=== PATIENT | female | born 1965 | race Caucasian/White ===

== ENCOUNTER → 2017-09-12 | Outpatient (CLI) | payer MEDICAID ==
--- NOTE | 2017-09-12 17:38 | XR ---
EXAMINATION TYPE: XR calcaneus 2V LT DATE OF EXAM: 09/12/2017 COMPARISON: NONE HISTORY: Heel pain TECHNIQUE: 2 views FINDINGS: There is a large Achilles calcaneal spur. Subtalar joint appears normal. I see no fracture. IMPRESSION: Large calcaneal spur.
== END | disposition home or self-care (01) ==
LOC: RADXRMAIN 17:19
PROVIDERS: ATTEND Family Medicine
DX: M77.32 Calcaneal spur, left foot (principal)

== ENCOUNTER → 2017-10-04 | Outpatient (CLI) | payer MEDICAID ==
--- NOTE | 2017-10-05 10:32 | XR ---
EXAMINATION TYPE: XR foot complete LT, XR calcaneus 2V LT DATE OF EXAM: 10/04/2017 CLINICAL HISTORY: Left foot pain greatest in the patient's heel. TECHNIQUE: Frontal, lateral, and oblique images of the left foot are obtained as well as calcaneal we ightbearing view. 2 views of the calcaneus were also obtained. COMPARISON: 09/12/2017 FINDINGS: There is no acute fracture/dislocation evident in the left foot. The joint spaces in the left foot appear within normal limits. The overlying soft tissue appears unremarkable. No focal soft tissue swelling. Osseous mineralization is within normal limits. No significant degenerative change. Boehler's angle is within normal limits. IMPRESSION: 1. There is no acute fracture or dislocation in the left foot. 2. Redemonstration of a large Achilles enthesophyte/supracalcaneal heel spur.
== END | disposition home or self-care (01) ==
LOC: RADXRMAIN 15:53
PROVIDERS: ATTEND Podiatrist Foot & Ankle Surgery
DX: M77.32 Calcaneal spur, left foot (principal); M79.672 Pain in left foot

== ENCOUNTER → 2017-10-11 | Outpatient (CLI) | payer MEDICAID ==
--- NOTE | 2017-10-16 08:45 | MM ---
Reason for exam: screening (asymptomatic). Last mammogram was performed 2 years and 5 months ago. History: Benign MG stereo VAD BX LT of the left breast, June 02, 2015. Benign excisional biopsy of the right breast, December 2010. Benign right US cyst aspiration of the right breast, August 16, 2010. Benign left mammotome panel of the left breast, December 12, 2005. Benign left US cyst aspiration of the left breast, December 12, 2005. Physical Findings: A clinical breast exam by your physician is recommended on an annual basis and results should be correlated with mammographic findings. MG Screening Mammo w CAD Bilateral CC and MLO view(s) were taken. Prior study comparison: May 08, 2015, bilateral MG diagnostic mammo w CAD [facility]. April 29, 2014, bilateral MG screening mammo w CAD. April 29, 2014, mammogram. The breast tissue is heterogeneously dense. This may lower the sensitivity of mammography. Previous mammotome biopsy within the left breast x 2. Bilateral breast masses have fluctuated in size, largest now on the right seems to measure up to 3cm, ultrasound is recommended. Regional calcifications are unchanged. ASSESSMENT: Incomplete: need additional imaging evaluation, BI-RAD 0 RECOMMENDATION: Ultrasound of both breasts. [facility] will attempt to contact patient to return for ultrasound.
== END | disposition home or self-care (01) ==
LOC: RADMAMWWP 16:41
PROVIDERS: ATTEND Family Medicine
DX: Z12.31 Encounter for screening mammogram for malignant neoplasm of breast (principal); Z00.00 Encounter for general adult medical examination without abnormal findings

== ENCOUNTER → 2018-04-28 | Outpatient (CLI) | payer MEDICAID ==
[2018-04-28 10:16] LABS: Basophils # (A) 0.1 k/uL (0-0.2); Basophils % (A) 1 %; Eosinophils # (A) 0.2 k/uL (0-0.7); Eosinophils % (A) 3 %; HCT 40.6 % (34.0-46.0); HGB 13.5 gm/dL (11.4-16.0); Lymphocytes # (A) 1.9 k/uL (1.0-4.8); Lymphocytes % (A) 32 %; MCH 29.6 pg (25.0-35.0); MCHC 33.1 g/dL (31.0-37.0); MCV 89.3 fL (80.0-100.0); Mean Platelet Volume 7.6; Monocytes # (A) 0.3 k/uL (0-1.0); Monocytes % (A) 6 %; Neutrophils # (A) 3.4 k/uL (1.3-7.7); Neutrophils % (A) 57 %; Platelet Count 320 k/uL (150-450); RBC 4.55 m/uL (3.80-5.40); RDW 13.8 % (11.5-15.5); WBC 6.1 k/uL (3.8-10.6)
[2018-04-28 10:38] LABS: ALT 32 U/L (9-52); AST 31 U/L (14-36); Albumin 4.5 g/dL (3.5-5.0); Alkaline Phosphatase 65 U/L (38-126); Anion Gap 12 mmol/L; Blood Urea Nitrogen 10 mg/dL (7-17); Calcium 9.4 mg/dL (8.4-10.2); Carbon Dioxide 27 mmol/L (22-30); Chloride 102 mmol/L (98-107); Cholesterol 272 mg/dL (<200); Glucose 75 mg/dL (74-99); HDL Cholesterol 50 mg/dL (40-60); LDL Cholesterol,Calculated 171 mg/dL (0-99); Potassium 4.5 mmol/L (3.5-5.1); Sodium 141 mmol/L (137-145); Total Bilirubin 0.9 mg/dL (0.2-1.3); Total Protein 7.6 g/dL (6.3-8.2); Triglycerides 253 mg/dL (<150)
== END | disposition home or self-care (01) ==
LOC: LABWHC1 09:10
PROVIDERS: ATTEND Family Medicine
DX: E66.9 Obesity, unspecified (principal)
CPT/HCPCS: 36415; 80053; 80061; 82306; 84443; 85025

== ENCOUNTER → 2018-05-08 | Outpatient (CLI) | payer MEDICAID ==
--- NOTE | 2018-05-08 11:33 | USB ---
Reason for exam: follow-up at short interval from prior study. History: Benign MG stereo VAD BX LT of the left breast, June 02, 2015. Benign excisional biopsy of the right breast, December 2010. Benign right US cyst aspiration of the right breast, August 16, 2010. Benign left mammotome panel of the left breast, December 12, 2005. Benign left US cyst aspiration of the left breast, December 12, 2005. Physical Findings: Nurse Summary: Patient complains of left pain around nipple around menstrual cycle, bilateral nodularity (nurse mj). US Breast BILAT Right complete breast ultrasound includes all four quadrants, the retroareolar region and axilla. Finding demonstrates a 0.9 x 0.7 x 0.9cm oval, hypoechoic lesion at 12 o'clock, a 0.9 x 0.5 x 0.9cm oval, cystic lesion at 10 o'clock and a 0.8 x 0.5 x 0.5cm oval, mixed lesion at 11 o'clock. Left complete breast ultrasound includes all four quadrants, the retroareolar region and axilla. Finding demonstrates several oval, cystic lesions measuring 1.9 x 0.8 x 2.4cm at 12 o'clock, 1.9 x 0.9 x 1.9cm at 12 o'clock, 1.9 x 1.2 x 1.4cm at 10 o'clock and a 1.8 x 0.9 x 2.1cm at 11 o'clock. Overall fibrocystic change redemonstrated. These results were verbally communicated with the patient and result sheet given to the patient on 05/08/18. ASSESSMENT: Benign, BI-RAD 2 RECOMMENDATION: Return to routine screening mammogram schedule for both breasts. Back on schedule.
== END | disposition home or self-care (01) ==
LOC: RADUSWWP 10:06
PROVIDERS: ATTEND Family Medicine
DX: R92.8 Other abnormal and inconclusive findings on diagnostic imaging of breast (principal)

== ENCOUNTER → 2019-04-27 | Outpatient (CLI) | payer MEDICAID ==
[2019-04-27 16:46] LABS: Albumin 4.2 g/dL (3.80-4.90); Albumin/Globulin Ratio 1.91 (1.60-3.17); Anion Gap 9.5 mmol/L (4.00-12.00); Calcium 9.2 mg/dL (8.7-10.3); Carbon Dioxide 26.5 mmol/L (21.6-31.8); Globulin 2.2 g/dL (1.6-3.3); LDL Cholesterol,Calculated 105.4 mg/dL (0.0-131.0); Potassium 4.4 mmol/L (3.5-5.5); Total Bilirubin 0.7 mg/dL (0.2-1.2); Total Protein 6.4 g/dL (6.2-8.2); VLDL Calculation 33.6 mg/dL (5.00-40.00)
== END ==
LOC: LABWHC1 09:00
PROVIDERS: ATTEND Family Medicine
DX: E78.5 Hyperlipidemia, unspecified (principal)
CPT/HCPCS: 36415; 80053; 80061

== ENCOUNTER → 2019-05-30 | Outpatient (CLI) | payer MEDICAID ==
--- NOTE | 2019-05-31 09:58 | MM ---
Reason for exam: screening (asymptomatic). Last mammogram was performed 1 year and 8 months ago. History: Benign MG stereo VAD BX LT of the left breast, June 02, 2015. Benign excisional biopsy of the right breast, December 2010. Benign right US cyst aspiration of the right breast, August 16, 2010. Benign left mammotome panel of the left breast, December 12, 2005. Benign left US cyst aspiration of the left breast, December 12, 2005. Physical Findings: A clinical breast exam by your physician is recommended on an annual basis and results should be correlated with mammographic findings. MG Screening Mammo w CAD Bilateral CC and MLO view(s) were taken. Prior study comparison: October 11, 2017, bilateral MG screening mammo w CAD. May 08, 2015, bilateral MG diagnostic mammo w CAD [facility]. The breast tissue is heterogeneously dense. This may lower the sensitivity of mammography. Previous mammotome biopsy in the left breast x 2. There is chronic nodularity in the right breast has decreased in size and in the left breast at clip. There is no new dominant lesion. ASSESSMENT: Benign, BI-RAD 2 RECOMMENDATION: Routine screening mammogram of both breasts in 1 year.
== END | disposition home or self-care (01) ==
LOC: RADMAMWWP 08:28
PROVIDERS: ATTEND Family Medicine
DX: Z12.31 Encounter for screening mammogram for malignant neoplasm of breast (principal)
CPT/HCPCS: 77067

== ENCOUNTER → 2019-06-25 | Outpatient (CLI) | payer MEDICAID ==
--- NOTE | 2019-06-25 16:18 | CONS ---
CONSULTATION REASON FOR CONSULTATION: Sleep apnea. 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 During a routine DOT physical, the patient screened positive for sleep apnea, as the patient's BMI was high at 50.2 and she has a history of snoring. For that reason, she was referred to me. She goes to bed around 9 p.m., wakes up around 5 a.m. in the morning. She gets fatigued, yet she does not have any significant sleepiness. She has a history of snoring. No witnessed apneas. No choking or gasping sensation. No grinding of the teeth. No restlessness at night or sleep fragmentation. She does not drink alcohol. Falkner score is at 2. No sleep paralysis, hallucinations or cataplexy. PAST MEDICAL HISTORY: 1. Hyperlipidemia. 2. Obesity. PAST SURGICAL HISTORY: Past surgical history includes: 1. . 2. Tubal ligation. 3. Umbilical hernia repair. DRUG ALLERGIES: NOT KNOWN. OUTPATIENT MEDICATION LIST: Outpatient medication list includes: 1. Lipitor. 2. Vitamin D. 3. Tumeric. SOCIAL HISTORY: The patient is a nonsmoker for now. The patient quit smoking around 4 years ago; she had smoked since the age of 15, around one pack of cigarettes a day. No history of alcoholism. No history of IV drugs. FAMILY HISTORY: Mother had colon cancer. Father had heart disease. Migraine in her sister. REVIEW OF SYSTEMS: Fourteen-point review of systems was done. Since the patient quit smoking, she gained a significant amount of weight, on the order of 25 pounds. She tries to sleep on her side. She watches TV in her bedroom. No coffee drinking. No vivid dreams. No nightmares. No panic, anxiety. No history of any motor vehicle accident because of feeling drowsy or sleepy. No heartburn. No palpitations. No sleepwalking or sleeptalking. No grinding of the teeth. No insomnia. No chest pain. No shortness of breath, cough, sputum production or heartburn. PHYSICAL EXAMINATION: VITAL SIGNS: BP is 150/83, pulse 70, respirations 16, temperature 98.3, saturation 98% on room air. Weight is 275. Height is 5 feet 2 inches. Neck size is 16 inches. Falkner score is 2. GENERAL APPEARANCE: Calm, comfortable. HEAD: Atraumatic, normocephalic. NECK: Supple. No JVD. No goiter or neck masses. Mallampati class IV. LUNGS: Clear to auscultation. HEART: Heart sounds are regular rate and rhythm. Normal S1, S2. No S3, S4. No murmurs. ABDOMEN: Soft, nontender. No organomegaly. EXTREMITIES: No edema. No cyanosis or clubbing. NEUROLOGIC: The patient is alert and oriented x3. No focal neurological deficits. PSYCHIATRY: Negative for anxiety or depression. SKIN: Negative for any wounds or ulceration. IMPRESSION: 1. Chronic fatigue with limited sleepiness. Consider obstructive sleep apnea based on anatomic features. 2. History of snoring. 3. Obesity with a body mass index of 50.2. 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 5. Hyperlipidemia. PLAN: Clinically the patient does not have any significant hypersomnia. 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 Based on anatomic features, I think it is crucial to do a sleep study to rule out underlying obstructive sleep apnea. Cannot rule out sleep apnea on clinical grounds, and a PSG will be needed. Encourage weight loss. Her BMI is 50.2. She is averaging a good 7-8 hours of sleep. She has good sleep hygiene measures. Will continue to follow. MMJESUSL / ELIERN: [id number] /
== END | disposition home or self-care (01) ==
LOC: SLEEP 13:20
PROVIDERS: ATTEND Internal Medicine Critical Care Medicine
DX: R06.83 Snoring (principal); E78.5 Hyperlipidemia, unspecified; R53.82 Chronic fatigue, unspecified; E66.9 Obesity, unspecified; Z68.43 Body mass index [BMI] 50.0-59.9, adult; Z79.899 Other long term (current) drug therapy; Z87.891 Personal history of nicotine dependence
CPT/HCPCS: 99211

== ENCOUNTER → 2019-08-21 | Outpatient (CLI) | payer MEDICAID ==
[2019-08-21 11:51] LABS: Basophils % (A) 1 %; Eosinophils # (A) 0.1 k/uL (0-0.7); Eosinophils % (A) 2 %; HCT 36.2 % (34.0-46.0); HGB 12.2 gm/dL (11.4-16.0); Lymphocytes # (A) 1.9 k/uL (1.0-4.8); Lymphocytes % (A) 32 %; MCH 29.3 pg (25.0-35.0); MCHC 33.6 g/dL (31.0-37.0); MCV 87.4 fL (80.0-100.0); Mean Platelet Volume 6.1; Monocytes # (A) 0.3 k/uL (0-1.0); Monocytes % (A) 5 %; Neutrophils # (A) 3.3 k/uL (1.3-7.7); Neutrophils % (A) 57 %; Platelet Count 340 k/uL (150-450); RBC 4.14 m/uL (3.80-5.40); RDW 13.7 % (11.5-15.5); WBC 5.8 k/uL (3.8-10.6)
[2019-08-21 18:37] LABS: African American GFR (CKD) 97.6 (60.0-200.0); Albumin 4.5 g/dL (3.80-4.90); Albumin/Globulin Ratio 2.14 (1.60-3.17); Anion Gap 10.8 mmol/L (4.00-12.00); Calcium 9.6 mg/dL (8.7-10.3); Carbon Dioxide 27.2 mmol/L (21.6-31.8); Globulin 2.1 g/dL (1.6-3.3); Potassium 4.5 mmol/L (3.5-5.5); Total Bilirubin 0.8 mg/dL (0.2-1.2); Total Protein 6.6 g/dL (6.2-8.2)
== END | disposition home or self-care (01) ==
LOC: LABWHC1 10:54
PROVIDERS: ATTEND Family Medicine
DX: E78.5 Hyperlipidemia, unspecified (principal)
CPT/HCPCS: 36415; 80053; 85025

== ENCOUNTER → 2019-12-13 | Outpatient (CLI) | payer MEDICAID ==
[2019-12-13 14:10] LABS: Basophils # (A) 0.2 k/uL (0-0.2); Basophils % (A) 3 %; Eosinophils # (A) 0.2 k/uL (0-0.7); Eosinophils % (A) 3 %; HCT 46.1 % (34.0-46.0); HGB 14.7 gm/dL (11.4-16.0); Lymphocytes # (A) 2.1 k/uL (1.0-4.8); Lymphocytes % (A) 30 %; MCH 29.4 pg (25.0-35.0); MCHC 31.9 g/dL (31.0-37.0); MCV 91.9 fL (80.0-100.0); Mean Platelet Volume 8.2; Monocytes # (A) 0.4 k/uL (0-1.0); Monocytes % (A) 6 %; Neutrophils % (A) 57 %; Platelet Count 294 k/uL (150-450); RBC 5.02 m/uL (3.80-5.40)
[2019-12-13 19:57] LABS: Albumin 5.2 g/dL (3.80-4.90); Albumin/Globulin Ratio 2.17 (1.60-3.17); Anion Gap 11.5 mmol/L (4.00-12.00); BUN/Creat Ratio 12.22 Ratio (12.00-20.00); Calcium 10.4 mg/dL (8.7-10.3); Carbon Dioxide 28.5 mmol/L (21.6-31.8); Globulin 2.4 g/dL (1.6-3.3); Non-African American GFR(CKD) 72.5 (60.0-200.0); Potassium 4.4 mmol/L (3.5-5.5); Total Bilirubin 1.3 mg/dL (0.2-1.2); Total Protein 7.6 g/dL (6.2-8.2)
== END ==
LOC: LABWHC1 12:49
PROVIDERS: ATTEND Family Medicine
DX: E78.5 Hyperlipidemia, unspecified (principal)
CPT/HCPCS: 36415; 80053; 85025

== ENCOUNTER → 2020-03-19 | Outpatient (CLI) | payer MEDICAID ==
[2020-03-19 18:20] LABS: Calcium 9.7 mg/dL (8.7-10.3)
== END | disposition home or self-care (01) ==
LOC: LABWHC1 11:21
PROVIDERS: ATTEND Family Medicine
DX: E55.9 Vitamin D deficiency, unspecified (principal)
CPT/HCPCS: 36415; 82306; 82310; 83970

== ENCOUNTER → 2020-09-12 | Outpatient (CLI) | payer MEDICAID ==
[2020-09-12 11:03] LABS: Basophils # (A) 0.1 k/uL (0-0.2); Basophils % (A) 1 %; Eosinophils # (A) 0.1 k/uL (0-0.7); Eosinophils % (A) 3 %; HCT 41.8 % (34.0-46.0); HGB 13.7 gm/dL (11.4-16.0); Lymphocytes # (A) 1.5 k/uL (1.0-4.8); Lymphocytes % (A) 33 %; MCH 30.9 pg (25.0-35.0); MCHC 32.8 g/dL (31.0-37.0); MCV 94.1 fL (80.0-100.0); Mean Platelet Volume 7.2; Monocytes # (A) 0.2 k/uL (0-1.0); Monocytes % (A) 5 %; Neutrophils # (A) 2.5 k/uL (1.3-7.7); Neutrophils % (A) 56 %; Platelet Count 294 k/uL (150-450); RBC 4.44 m/uL (3.80-5.40); RDW 13.1 % (11.5-15.5); WBC 4.5 k/uL (3.8-10.6)
[2020-09-12 18:20] LABS: Albumin 4.5 g/dL (3.80-4.90); Albumin/Globulin Ratio 1.88 (1.60-3.17); Anion Gap 6.8 mmol/L (4.00-12.00); BUN/Creat Ratio 13.33 Ratio (12.00-20.00); Calcium 9.8 mg/dL (8.7-10.3); Carbon Dioxide 27.2 mmol/L (21.6-31.8); Chol/HDL Ratio 2.93; Globulin 2.4 g/dL (1.6-3.3); Non-African American GFR(CKD) 72.5 (60.0-200.0); Potassium 4.4 mmol/L (3.5-5.5); Total Bilirubin 1.1 mg/dL (0.2-1.2); Total Protein 6.9 g/dL (6.2-8.2)
== END | disposition home or self-care (01) ==
LOC: LABMAIN 10:22
PROVIDERS: ATTEND Family Medicine
DX: Z00.00 Encounter for general adult medical examination without abnormal findings (principal)
CPT/HCPCS: 36415; 80053; 80061; 82306; 85025

== ENCOUNTER → 2020-12-03 | Outpatient (CLI) | payer MEDICAID ==
--- NOTE | 2020-12-03 10:40 | MM ---
Reason for exam: screening (asymptomatic). Last mammogram was performed 1 year and 6 months ago. History: Patient is postmenopausal. Benign MG stereo VAD BX LT of the left breast, June 02, 2015. Benign excisional biopsy of the right breast, December 2010. Benign right US cyst aspiration of the right breast, August 16, 2010. Benign left mammotome panel of the left breast, December 12, 2005. Benign left US cyst aspiration of the left breast, December 12, 2005. Physical Findings: A clinical breast exam by your physician is recommended on an annual basis and results should be correlated with mammographic findings. MG Screening Mammo w CAD Bilateral CC and MLO view(s) were taken. Prior study comparison: May 30, 2019, bilateral MG screening mammo w CAD. October 11, 2017, bilateral MG screening mammo w CAD. The breast tissue is heterogeneously dense. This may lower the sensitivity of mammography. Finding: There are grouped/clustered calcifications in the upper outer quadrant, anterior position of the right breast. Previous mammotome biopsy in the left breast x 2. There is a chronic nodularity in the left breast. ASSESSMENT: Incomplete: need additional imaging evaluation, BI-RAD 0 RECOMMENDATION: Special view mammogram of the right breast. [facility] will attempt to contact patient to return for supplemental views.
== END | disposition home or self-care (01) ==
LOC: RADMAMWWP 08:59
PROVIDERS: ATTEND Family Medicine
DX: Z12.31 Encounter for screening mammogram for malignant neoplasm of breast (principal)
CPT/HCPCS: 77067

== ENCOUNTER → 2020-12-08 | Outpatient (CLI) | payer MEDICAID ==
--- NOTE | 2020-12-08 13:51 | MM ---
Reason for exam: additional evaluation requested from abnormal screening. Last mammogram was performed less than 1 month ago. History: Patient is postmenopausal. Benign MG stereo VAD BX LT of the left breast, June 02, 2015. Benign excisional biopsy of the right breast, December 2010. Benign right US cyst aspiration of the right breast, August 16, 2010. Benign left mammotome panel of the left breast, December 12, 2005. Benign left US cyst aspiration of the left breast, December 12, 2005. Physical Findings: Nurse did not find any significant physical abnormalities on exam. MG Work Up Mamm w CAD RT CC with magnification, ML with magnification, and ML view(s) were taken of the right breast. Prior study comparison: December 03, 2020, bilateral MG screening mammo w CAD. May 30, 2019, bilateral MG screening mammo w CAD. The breast tissue is heterogeneously dense. This may lower the sensitivity of mammography. Finding: There are indeterminate calcifications in the upper outer quadrant of the right breast, 5cm from the nipple. New finding since December 03, 2020 and May 30, 2019. These results were verbally communicated with the patient and result sheet given to the patient on 12/08/20. ASSESSMENT: Suspicious, BI-RAD 4 RECOMMENDATION: Stereotactic core biopsy of the right breast. Called Dr. Dillon's office with mammographic findings and has scheduled an appointment for the patient for 12/11/20 at 9:[address] Brothers. Biopsy scheduled for 12/17/20 at 8:00. PRELIMINARY REPORT CALLED AND FAXED TO DR. BROTHERS ON 12/08/20.
== END | disposition home or self-care (01) ==
LOC: RADMAMWWP 08:57
PROVIDERS: ATTEND Family Medicine
DX: R92.8 Other abnormal and inconclusive findings on diagnostic imaging of breast (principal)
CPT/HCPCS: 77065

== ENCOUNTER → 2020-12-11 | Outpatient (CLI) | payer MEDICAID ==
[2020-12-11 09:15] VITALS: BP 135/77; PULSE 58; RESP 16; TEMP 98.5
--- NOTE | 2020-12-11 09:47 | P.GSHP ---
History of Present Illness H&P Date: 12/11/20 Chief Complaint: Abnormal right breast mammogram Libertad is a 55-year-old white female seen in consultation for Dr. Dillon regarding a mammographic abnormality in the right breast. She had a bilateral screening mammogram [place] [id number]. This revealed some grouped/cluster ca lcifications in the upper outer quadrant of the right breast. [place] [id number] this again revealed some indeterminate calcifications in the upper quadrant of the right breast 5 cm from the nipple; stereotactic core biopsy was recommended. Of importance is the fact that the patient had a stereotactic core biopsy of the left breast in 2014 which was benign. The patient states she has bilateral breast cyst but has not noted anything new in her breasts. She is not complaining of any nipple discharge or skin changes. She is not complaining of any breast pain. She has not had any recent trauma or infection in the breast. She has had as stated a left breast are detected core biopsy in the left breast FNA in the past both of which were wood gn. She had a cyst removed in the operating room from the right breast which kept getting infected, this was done many years ago. Caffeine:none stewart-bromine: daily nicotine: stopped smoking 5 years ago Family history: mother colon cancer Hormonal History: menarche: 13 , breast fed:yes, age at first : 23 menopause: 54 BCP: 8 years hormones: none surgical history: Umbilical and ventral hernia repair Right breast cyst removed Tubal ligation Medical history: high cholesterol Social History: smoke: stopped 5 years ago alcohol: none drugs: none - Constitutional Constitutional: Denies chills, Denies fever - EENT Eyes: denies blurred vision, denies pain Ears: deny: decreased hearing, tinnitus Ears, nose, mouth and throat: Denies headache, Denies sore throat - Breasts Breasts: bilateral: as per HPI - Cardiovascular Cardiovascular: Denies chest pain, Denies shortness of breath - Respiratory Comment: CPAP Respiratory: Denies cough, Denies 7 - Gastrointestinal Gastrointestinal: Denies abdominal pain, Denies diarrhea, Denies nausea, Denies vomiting - Menstruation Menstruation: Reports postmenopausal - Musculoskeletal Comment: arthritis knees, feet Musculoskeletal: Denies myalgias - Integumentary Integumentary: Denies pruritus, Denies rash - Neurological Neurological: Denies numbness, Denies weakness - Psychiatric Psychiatric: Denies anxiety, Denies depression - Endocrine Comment: Patient is losing weight on medication, intentional Endocrine: Reports weight change, Denies fatigue - Hematologic/Lymphatic Comment: none - Allergic/Immunologic Allergic/Immunologic: Reports seasonal allergies Past Medical History Past Medical History: Hyperlipidemia Additional Past Medical History / Comment(s): seasonal allergies; past hx. colon polyps; mom had colon cancer, intermittent abd. pain; History of Any Multi-Drug Resistant Organisms: None Reported Past Surgical History: Breast Surgery, Hernia Repair, Tubal Ligation Additional Past Surgical History / Comment(s): cyst removed left wrist; colonoscopy; hernia repair; benign LT breast bx x2 11/2005 & 05/2015; benign RT breast bx 12/2010; Past Anesthesia/Blood Transfusion Reactions: No Reported Reaction Additional Past Anesthesia/Blood Transfusion Reaction / Comment(s): woke up during a surgery Past Psychological History: No Psychological Hx Reported Smoking Status: Former smoker Past Alcohol Use History: None Reported Additional Past Alcohol Use History / Comment(s): Started smoking at age 15 and quit at age 50 Past Drug Use History: None Reported - Past Family History Mother Family Medical History: Cancer Additional Family Medical History / Comment(s): Colon cancer Medications and Allergies Home Medications Medication Instructions Recorded Confirmed Type Atorvastatin [Lipitor] 20 mg PO HS 09/21/15 12/11/20 History Naltrexone HCl/Bupropion HCl 1 each PO BID 12/09/20 12/11/20 History [Contrave ER 8-90 mg Tablet] Cholecalciferol (Vitamin D3) 125 mcg PO QAM 12/11/20 12/11/20 History [Vitamin D3 (5000 Iu)] Allergies Allergy/AdvReac Type Severity Reaction Status Date / Time No Known Allergies Allergy Verified 12/11/20 09:04 Surgical - Exam Vital Signs Temp Pulse Resp BP Pulse Ox 98.5 F 58 L 16 135/77 98 12/11/20 09:06 12/11/20 09:06 12/11/20 09:06 12/11/20 09:06 12/11/20 09:06 BMKI 47.6 - General obese - Eyes normal ocular movement - ENT normal nares - Neck no masses, trachea midline - Respiratory normal expansion, normal respiratory effort, clear to auscultation - Cardiovascular Rhythm: regular Heart Sounds: normal: S1, S2 - Abdomen Abdomen: soft, bowel sounds - Integumentary normal turgor - Neurologic no disoriented, no combative - Musculoskeletal normal gait, normal posture - Psychiatric oriented to time, oriented to person, oriented to place, speech is normal, memory intact breast exam: BRA: 42C inspection: bilateral grade 3 ptosis Operation: Right breast: Multiple positional exam fibrocystic changes, no dominant masses or nodules of concern, well-healed scar from prior biopsy Mid axilla: No adenopathy of concern Left breast: Multi-positional exam fibrocystic changes no dominant masses or nodules of concern Left axilla: No adenopathy of concern Results Mammographic results reviewed, microcalcifications of concern upper outer quadrant of the right breast Assessment and Plan Assessment: Impression: 1. Radiographic abnormality microcalcifications upper outer quadrant right breast 2. Fibrocystic breast changes 3. Patient status post right breast biopsy in the remote past as well as core biopsy of the left breast both were benign 4. Family history mother with colon cancer 5. High cholesterol 6. BMI 47.6 7. Sleep apnea Plan: 1. stero biopsy right breast 2. medical managment of medical conditions 3. We have discussed lifestyle modification IV decreasing chocolate intake for possibly decreasing fibrocystic breast changes the patient will consider this Cc: Dr. Dillon Risk and benefits of the procedure discussed with the patient. She understands and wishes to proceed. Risks include but are not limited to bleeding, infection, reaction to the anesthetic. Alternatives such as watchful waiting resection the operating room I discussed but not recommended. encounter 45 minutes, > 50 % of time in planning and counselling
== END | disposition home or self-care (01) ==
LOC: WWCWWP 08:54
PROVIDERS: ATTEND Surgery
DX: Z53.9 Procedure and treatment not carried out, unspecified reason (principal)

== ENCOUNTER → 2020-12-17 | Day surgery (SDC) | payer MEDICAID ==
--- NOTE | 2020-12-17 08:38 | P.OP ---
Date of Procedure: 12/17/20 Preoperative Diagnosis: Microcalcifications of concern right breast Postoperative Diagnosis: Same Procedure(s) Performed: right stero biopsy Anesthesia: local Surgeon: Carolyn Sims Estimated Blood Loss (ml): 0 Pathology: other (Breast tissue) Condition: stable Disposition: same day Indications for Procedure: Mammographic abnormality right breast Operative Findings: Concordant biopsy microcalcifications in specimen Description of Procedure: Libertad is a 55-year-old white female who had a mammogram performed on . This revealed heterogeneously dense tissue with indeterminate calcifications in the upper outer quadrant of the right breast 5 cm from the nipple. It was recommended the patient undergo a stereotactic core biopsy. Risk and benefits of the procedure were discussed with the patient including watchful waiting versus open biopsy. These were not recommended and stereo biopsy was recommended. The patient understood and wished to proceed. The patient was brought to the stereotactic core biopsy from. She was positioned prone on the Lorad table. A hand stemmer film was obtained. A CC from above approach was utilized. The area of concern was identified. Stereo pair was obtained. The lesion was targeted. The breast was prepped using Betadine. 20 mL of 1% lidocaine were used to anesthetize the area of concern. A 9-gauge vacuum-assisted core biopsy needle was driven to the correct coordinates. 9 core biopsies were obtained. Radiograph of the specimen revealed the area of concern had been obtained. This was felt to be concordant. A secure ruperto top hat blocking machine operator was placed. Radiograph revealed this to be in the correct location. The patient will follow-up with Dr. Edwards next week. The specimen was sent for pathology.
[2020-12-17 09:33] VITALS: BP 124/86; PULSE 61; RESP 16; TEMP 97.8
--- NOTE | 2020-12-17 19:53 | MM ---
EXAMINATION TYPE: MG stereo VAD BX RT DATE OF EXAM: 12/17/2020 COMPARISON: 12/03/2020, 12/08/2020, 05/30/2019 CLINICAL HISTORY: 55-year-old female referred for stereotactic core needle biopsy right breast microc alcifications, 11:00 position. TECHNIQUE: Stereotactic guided core biopsy of the 11:00 right breast. FINDINGS: The procedure of stereotactic guided core biopsy was explained to the patient. Benefits, a lternatives, and risks were discussed. An informed consent was then obtained. The shortness pathway for biopsy was chosen. [facility]. I performed the localization, then surgeon, Dr. Jerry Wade performed the remainder of the procedure. A vacuum as sisted biopsy gun was used to obtain multiple core samples. The patient tolerated the procedure well without any immediate complication. The patient was kept in the radiology department for short stay after the procedure and then discharged home in stable condi tion. Targeted calcifications are identified in specimen mammogram. Post biopsy mammogram shows the clip to appear in satisfactory position relative to the targeted area of concern on the preprocedure images. IMPRESSION: SUCCESSFUL, UNCOMPLICATED STEREOTACTIC GUIDED CORE BIOPSY OF 11:00 RIGHT BREAST MICROCALCIFICATIONS. FULL PATHOLOGY RESULTS TO FOLLOW.
== END ==
LOC: RADMAMWWP 07:21
PROVIDERS: ATTEND Surgery
DX: N60.21 Fibroadenosis of right breast (principal); N60.11 Diffuse cystic mastopathy of right breast; N60.81 Other benign mammary dysplasias of right breast; N62 Hypertrophy of breast
CPT/HCPCS: 88305; 19081; A4648; J2001

== ENCOUNTER → 2020-12-24 | Outpatient (CLI) | payer MEDICAID ==
[2020-12-24 09:16] VITALS: BP 149/98; PULSE 62; RESP 18; TEMP 97.9
--- NOTE | 2020-12-24 09:37 | P.PN ---
Subjective Progress Note Date: 12/24/20 Principal diagnosis: restults of stero biopsy Libertad is a 55 year old whtie female status post a stero biopsy on 12-17-20 of the right breast. Her pathology was benign fibrocystic change with microcalcifications present. Patient has no complaints related to the procedure. It was felt that her pathology was benign specific. Objective - Vital Signs Vital signs: Vital Signs Temp 97.9 F 12/24/20 09:13 Pulse 62 12/24/20 09:13 Resp 18 12/24/20 09:13 BP 149/98 12/24/20 09:13 Pulse Ox 96 12/24/20 09:13 Intake & Output 12/23/20 12/24/20 12/24/20 18:59 06:59 18:59 Weight 119.748 kg - Constitutional General appearance: Present: obese - EENT Eyes: Present: EOMI ENT: Present: hearing grossly normal - Neck Neck: Present: normal ROM - Respiratory Respiratory: bilateral: CTA - Cardiovascular Rhythm: regular Heart sounds: normal: S1, S2 - Integumentary Integumentary Comment(s): Biopsy site Right breastclean and dry, small hematoma no evidence of infection - Musculoskeletal Musculoskeletal: Present: gait normal - Psychiatric Psychiatric: Present: A&O x's 3, appropriate affect, intact judgment & insight Assessment and Plan Assessment: Impression: 1. Fibrocystic breast changes and stereotactic core biopsy right breast no evidence of cancer or precancer felt to be benign specific and concordant 2. Family history mother with colon cancer patient will scheduled for colonoscopy in the near future 3. High cholesterol 4. Sleep apnea 5. BMI 47.6 Plan: 1. Repeat right breast mammogram in 6 months with a physician exam at that time 2. Patient will have colonoscopy performed 3. life style modification she does eat chocolate daily and she will consider this Cc: Wilma encounter 10 minutes, time spent in reviewing medical information, examination, and counselling
== END | disposition home or self-care (01) ==
LOC: WWCWWP 09:08
PROVIDERS: ATTEND Surgery
DX: Z53.9 Procedure and treatment not carried out, unspecified reason (principal)

== ENCOUNTER → 2021-06-08 | Outpatient (CLI) | payer MEDICAID ==
--- NOTE | 2021-06-08 13:36 | MM ---
Reason for exam: follow-up at short interval from prior study. Last mammogram was performed 6 months ago. History: Patient is postmenopausal. Benign MG stereo VAD BX RT of the right breast, December 17, 2020. Benign MG stereo VAD BX LT of the left breast, June 02, 2015. Benign excisional biopsy of the right breast, December 2010. Benign right US cyst aspiration of the right breast, August 16, 2010. Benign left mammotome panel of the left breast, December 12, 2005. Benign left US cyst aspiration of the left breast, December 12, 2005. Physical Findings: Nurse did not find any significant physical abnormalities on exam. MG Diagnostic Mammo RT w CAD CC and MLO view(s) were taken of the right breast. Prior study comparison: December 08, 2020, right breast MG work up mamm w CAD RT. December 03, 2020, bilateral MG screening mammo w CAD. May 30, 2019, bilateral MG screening mammo w CAD. The breast tissue is heterogeneously dense. This may lower the sensitivity of mammography. Right biopsy clip. These results were verbally communicated with the patient and result sheet given to the patient on 06/08/21. ASSESSMENT: Benign, BI-RAD 2 RECOMMENDATION: Follow-up diagnostic mammogram of both breasts in 6 months. Back on schedule for November 2020.
== END | disposition home or self-care (01) ==
LOC: RADMAMWWP 12:46
PROVIDERS: ATTEND Surgery
DX: R92.8 Other abnormal and inconclusive findings on diagnostic imaging of breast (principal)
CPT/HCPCS: 77065

== ENCOUNTER → 2021-06-10 | Outpatient (CLI) | payer MEDICAID ==
[2021-06-10 08:50] VITALS: BP 125/84; PULSE 59; RESP 18; TEMP 98.1
--- NOTE | 2021-06-10 09:02 | P.PN ---
Subjective Progress Note Date: 06/10/21 Principal diagnosis: Fibrocystic breast changes Libertad is a 55-year-old white female seen in consultation for Dr. Dillon regarding a mammographic abnormality in the right breast. She had a bilateral screening mammogram [place] [id number]. This revealed some grouped/cluster calcifi cations in the upper outer quadrant of the right breast. [place] [address] this again revealed some indeterminate calcifications in the upper quadrant of the right breast 5 cm from the nipple; stereotactic core biopsy was recommended. Of importance is the fact that the patient had a stereotactic core biopsy of the left breast in 2014 which was benign. The patient and [id number] underwent a right breast stereotactic core biopsy. Pathology was benign fibrocystic disease. [place] [address]. This was benign BIRADS 2 and bilateral mammogram in 6 months is recommended. She does not complain of any new lumps masses nodules or concerns in either breast. Caffeine:none stewart-bromine: daily nicotine: stopped smoking 5 years ago Family history: mother: colon cancer Hormonal History: menarche: 13 , breast fed:yes, age at first : 23 menopause: 54 BCP: 8 years hormones: none surgical history: Umbilical and ventral hernia repair Right breast cyst removed Tubal ligation Medical history: high cholesterol Social History: smoke: stopped 5 years ago alcohol: none drugs: none - Constitutional Constitutional: Denies chills, Denies fever - EENT Eyes: denies blurred vision, denies pain Ears: deny: decreased hearing, tinnitus Ears, nose, mouth and throat: Denies headache, Denies sore throat - Breasts Breasts: bilateral: as per HPI - Cardiovascular Cardiovascular: Denies chest pain, Denies shortness of breath - Respiratory Comment: CPAP Respiratory: Denies cough - Gastrointestinal Gastrointestinal: Denies abdominal pain, Denies diarrhea, Denies nausea, Denies vomiting - Menstruation Menstruation: Reports postmenopausal - Musculoskeletal Comment: arthritis knees, feet Musculoskeletal: Denies myalgias - Integumentary Integumentary: Denies pruritus, Denies rash - Neurological Neurological: Denies numbness, Denies weakness - Psychiatric Psychiatric: Denies anxiety, Denies depression - Endocrine Comment: Patient is losing weight on medication, intentional Endocrine: Reports weight change, Denies fatigue - Hematologic/Lymphatic Comment: none - Allergic/Immunologic Allergic/Immunologic: Reports seasonal allergies Objective - Vital Signs Vital signs: Vital Signs Temp 98.1 F 06/10/21 08:47 Pulse 59 L 06/10/21 08:47 Resp 18 06/10/21 08:47 BP 125/84 06/10/21 08:47 Pulse Ox 91 L 06/10/21 08:47 Intake & Output 06/09/21 06/10/21 06/10/21 18:59 06:59 18:59 Weight 122.47 kg - Exam BMI 49.4 - Constitutional General appearance: Present: cooperative - EENT Eyes: Present: EOMI ENT: Present: hearing grossly normal - Neck Neck: Present: normal ROM - Respiratory Respiratory: bilateral: CTA - Cardiovascular Heart sounds: normal: S1, S2 - Integumentary Integumentary: Present: normal turgor - Musculoskeletal Musculoskeletal: Present: gait normal - Psychiatric Psychiatric: Present: A&O x's 3, appropriate affect, intact judgment & insight - Additional findings Additional findings: Breast exam: BRA: 42C inspection: Bilateral grade 3 ptosis; well-healed scar right breast from prior biopsy Palpation: Right breast: Multiple positional exam fibrocystic changes no dominant masses or nodules of concern Right axilla: No adenopathy of concern Left breast: Multiple positional exam fibrocystic changes no dominant masses or nodules of concern Left axilla: No adenopathy of concern Assessment and Plan Assessment: Impression: 1. Bilateral fibrocystic breast changes 2. Recent right breast mammogram [id number] benign BIRADS 2 3. High cholesterol Plan: 1. Bilateral mammogram in 6 months with a physician exam at that time 2. Patient to call sooner if any questions or concerns CC: Dr. Dillon
== END | disposition home or self-care (01) ==
LOC: WWCWWP 08:38
PROVIDERS: ATTEND Surgery
DX: Z53.9 Procedure and treatment not carried out, unspecified reason (principal)

== ENCOUNTER → 2021-12-09 | Outpatient (CLI) | payer MEDICAID ==
--- NOTE | 2021-12-09 10:48 | MM ---
Reason for exam: screening (asymptomatic). Last mammogram was performed 6 months ago. History: Patient is postmenopausal. Benign MG stereo VAD BX RT of the right breast, December 17, 2020. Benign MG stereo VAD BX LT of the left breast, June 02, 2015. Benign excisional biopsy of the right breast, December 2010. Benign right US cyst aspiration of the right breast, August 16, 2010. Benign left mammotome panel of the left breast, December 12, 2005. Benign left US cyst aspiration of the left breast, December 12, 2005. Physical Findings: A clinical breast exam by your physician is recommended on an annual basis and results should be correlated with mammographic findings. MG Screening Mammo w CAD Bilateral CC and MLO view(s) were taken. Prior study comparison: June 08, 2021, right breast MG diagnostic mammo RT w CAD. December 08, 2020, right breast MG work up mamm w CAD RT. The breast tissue is heterogeneously dense. This may lower the sensitivity of mammography. There are benign appearing regional, round calcifications bilaterally. Previous mammotome biopsy in the right and left breast x 2. There is no discrete abnormality. ASSESSMENT: Benign, BI-RAD 2 RECOMMENDATION: Routine screening mammogram of both breasts in 1 year.
== END | disposition home or self-care (01) ==
LOC: RADMAMWWP 08:59
PROVIDERS: ATTEND Surgery
DX: Z12.31 Encounter for screening mammogram for malignant neoplasm of breast (principal)
CPT/HCPCS: 77067

== ENCOUNTER → 2022-01-14 | Outpatient (CLI) | payer MEDICAID ==
--- NOTE | 2021-12-16 17:14 | P.PN ---
Progress Note - Text Progress Note Date: 12/16/21 Patient did not keep her appointment today secondary to being diagnosed with COVID. She did have a bilateral mammogram on which was benign BIRADS 2. I've called her with the results of mammogram. I have also requested that she come for breast examination. She's going to schedule that in the near future.
[2022-01-14 15:21] VITALS: BP 151/91; PULSE 79; RESP 18; TEMP 98.7
--- NOTE | 2022-01-14 15:41 | P.PN ---
Subjective Progress Note Date: 01/14/22 Principal diagnosis: Fibrocystic breast changes Libertad is a 56-year-old white female seen initially regarding a mammographic abnormality in the right breast. [place] [address]. This revealed some grouped/cluster calcifications in the upper outer quadrant of the right breast. [place] [address] this again revealed some indeterminate calcifications in the upper quadrant of the right breast 5 cm from the nipple; stereotactic core biopsy was recommended. Of importance is the fact that the patient had a stereotactic core biopsy of the left breast in 2014 which was benign. She had a right breast core biopsy on 12-17-20 which was benign. She had a bilateral mammogram on 12-09-21 which was benign BIRAD 2. She is not complaining of any new lumps masses or nodules of concern in either breast. Caffeine: occasional chocolate: daily nicotine: stopped smoking 6years ago Family history: mother: colon cancer Hormonal History: menarche: 13 , breast fed:yes, age at first : 23 menopause: 54 BCP: 8 years hormones: none surgical history: Umbilical and ventral hernia repair Right breast cyst removed Tubal ligation Medical history: high cholesterol post COVID; had the vaccine and booster when she got COVID Social History: smoke: stopped 5 years ago alcohol: none drugs: none - Constitutional Constitutional: Denies chills, Denies fever - EENT Eyes: denies blurred vision, denies pain Ears: deny: decreased hearing, tinnitus Ears, nose, mouth and throat: Denies headache, Denies sore throat - Breasts Breasts: bilateral: as per HPI - Cardiovascular Cardiovascular: Denies chest pain, Denies shortness of breath - Respiratory Comment: CPAP Respiratory: Denies cough - Gastrointestinal Gastrointestinal: Denies abdominal pain, Denies diarrhea, Denies nausea, Denies vomiting - Menstruation Menstruation: Reports postmenopausal - Musculoskeletal Comment: arthritis knees, feet Musculoskeletal: Denies myalgias - Integumentary Integumentary: Denies pruritus, Denies rash - Neurological Neurological: Denies numbness, Denies weakness - Psychiatric Psychiatric: Denies anxiety, Denies depression - Endocrine Comment: Patient is losing weight on medication, intentional Endocrine: Reports weight change, Denies fatigue - Hematologic/Lymphatic Comment: none - Allergic/Immunologic Allergic/Immunologic: Reports seasonal allergies Objective - Vital Signs Vital signs: Vital Signs Temp 98.7 F 01/14/22 15:17 Pulse 79 01/14/22 15:17 Resp 18 01/14/22 15:17 BP 151/91 01/14/22 15:17 Pulse Ox 96 01/14/22 15:17 Intake & Output 01/13/22 01/14/22 01/14/22 18:59 06:59 18:59 Weight 124.738 kg - Exam BMI 50.3 - Constitutional General appearance: Present: cooperative - EENT Eyes: Present: EOMI ENT: Present: hearing grossly normal - Neck Neck: Present: normal ROM - Respiratory Respiratory: bilateral: CTA - Cardiovascular Rhythm: regular Heart sounds: normal: S1, S2 - Gastrointestinal General gastrointestinal: Present: soft - Integumentary Integumentary: Present: normal turgor - Musculoskeletal Musculoskeletal: Present: gait normal - Psychiatric Psychiatric: Present: A&O x's 3, appropriate affect, intact judgment & insight - Additional findings Additional findings: Breast Exam: BRA: 42C inspection: Bilateral grade 3 ptosis Palpation: Right breast: Multi-positional exam fibrocystic changes no dominant masses or nodules of concern Right axilla: No adenopathy of concern Left breast: Multi-positional exam fibrocystic changes no dominant masses or nodules of concern Left axilla: No adenopathy of concern small subcutaneous nodularity may be consistent with a sebaceous cyst Assessment and Plan Assessment: Impression: Fibrocystic breast changes BMI 50.3 Probable sebaceous cyst under her left arm Plan: I lateral mammogram in 1 year with physician exam at that time If if cystic lesion under her left arm is persistent consider excision Cc: Dr. Dillon
== END | disposition home or self-care (01) ==
LOC: WWCWWP 15:09
PROVIDERS: ATTEND Surgery
DX: Z53.9 Procedure and treatment not carried out, unspecified reason (principal)

== ENCOUNTER → 2022-08-08 | Outpatient (CLI) | payer BC ==
[2022-08-08 14:22] LABS: Basophils # (A) 0.06 X 10*3/uL (0.00-0.10); Basophils % (A) 0.9 %; Eosinophils # (A) 0.15 X 10*3/uL (0.04-0.35); Eosinophils % (A) 2.2 %; HCT 34.1 % (37.2-46.3); HGB 10.7 g/dL (12.0-15.0); Immature Grans, Automated 0.1 %; Lymphocytes # (A) 1.81 X 10*3/uL (0.90-5.00); Lymphocytes % (A) 27.1 %; MCH 26.8 pg (27.0-32.0); MCHC 31.4 g/dL (32.0-37.0); MCV 85.3 fL (80.0-97.0); Mean Platelet Volume 10.8 fL (9.5-12.2); Monocytes # (A) 0.48 X 10*3/uL (0.20-1.00); Monocytes % (A) 7.2 %; NRBC Per 100 WBC 0 /100 WBCS (0.0-0.0); Neutrophils # (A) 4.16 X 10*3/uL (1.80-7.70); Neutrophils % (A) 62.5 %; Platelet Count 354 X 10*3/uL (140-440); RDW 17.2 % (11.5-14.5); WBC 6.67 X 10*3/uL (4.50-10.00)
[2022-08-08 14:52] LABS: ALT 17 U/L (8-44); AST 21 U/L (13-35); African American GFR (CKD) 84.2 (60.0-200.0); Albumin 4.2 g/dL (3.8-4.9); Albumin/Globulin Ratio 1.44 (1.60-3.17); Alkaline Phosphatase 86 U/L (41-126); BUN/Creat Ratio 8.74 Ratio (12.00-20.00); Blood Urea Nitrogen 7.8 mg/dL (9.0-27.0); Calcium 9.3 mg/dL (8.7-10.3); Carbon Dioxide 24.4 mmol/L (20.0-27.5); Chloride 103 mmol/L (96-109); Chol/HDL Ratio 3.49 Ratio; Glucose 90 mg/dL (70-110); LDL Cholesterol,Calculated 95.7 mg/dL (0.0-131.0); Non-African American GFR(CKD) 72.7 (60.0-200.0); Potassium 4.1 mmol/L (3.5-5.5); Sodium 140 mmol/L (135-145); Total Protein 7.2 g/dL (6.2-8.2)
== END | disposition home or self-care (01) ==
LOC: LABWHC1 09:36
PROVIDERS: ATTEND Family Medicine
DX: Z00.00 Encounter for general adult medical examination without abnormal findings (principal); E78.5 Hyperlipidemia, unspecified; E55.9 Vitamin D deficiency, unspecified
CPT/HCPCS: 36415; 80053; 80061; 82306; 85025

== ENCOUNTER → 2022-08-15 | Outpatient (CLI) | payer BC ==
[2022-08-15 15:38] LABS: Basophils # (A) 0.06 X 10*3/uL (0.00-0.10); Eosinophils # (A) 0.13 X 10*3/uL (0.04-0.35); Eosinophils % (A) 2.1 %; HCT 34.1 % (37.2-46.3); HGB 10.7 g/dL (12.0-15.0); Immature Grans, Automated 0.3 %; Lymphocytes % (A) 25.8 %; MCH 26.7 pg (27.0-32.0); MCHC 31.4 g/dL (32.0-37.0); Mean Platelet Volume 10.5 fL (9.5-12.2); Monocytes # (A) 0.38 X 10*3/uL (0.20-1.00); Monocytes % (A) 6.1 %; NRBC Per 100 WBC 0 /100 WBCS (0.0-0.0); Neutrophils # (A) 4.02 X 10*3/uL (1.80-7.70); Neutrophils % (A) 64.7 %; Platelet Count 344 X 10*3/uL (140-440); RBC 4.01 X 10*6/uL (4.10-5.20); RDW 16.9 % (11.5-14.5); WBC 6.21 X 10*3/uL (4.50-10.00)
[2022-08-15 16:28] LABS: % Iron Saturation 5.28 (12.00-45.00); Ferritin 9.7 ng/mL (10.0-291.0)
== END | disposition home or self-care (01) ==
LOC: LABWHC1 09:04
PROVIDERS: ATTEND Family Medicine
DX: D64.9 Anemia, unspecified (principal)
CPT/HCPCS: 36415; 82607; 82728; 82746; 82747; 83540; 83550; 85025

== ENCOUNTER → 2022-12-12 | Outpatient (CLI) | payer BC ==
--- NOTE | 2022-12-13 08:37 | MM ---
Reason for Exam: Screening (asymptomatic). Last screening mammogram was performed 12 month(s) ago. Patient History: Menarche at age 12. First Full-Term at age 23. Postmenopausal. Patient has history of breast feeding. 12/2010, Benign Excisional Biopsy on the right side. 12/17/2020, Benign Core Biopsy on the right side. 06/02/2015, Benign Core Biopsy on the left side. 08/16/2010, Benign Cyst Aspiration on the right side. 12/12/2005, Benign Core Biopsy on the left side. 12/12/2005, Benign Cyst Aspiration on the left side. Risk Values: Leigh 5 year model risk: 1.7%. NCI Lifetime model risk: 10.4%. Prior Study Comparison: 05/08/2015 Bilateral Diagnostic Mammogram, [facility]. 10/11/2017 Bilateral Screening Mammogram, [facility]. 05/30/2019 Bilateral Screening Mammogram, [facility]. 12/03/2020 Bilateral Screening Mammogram, [facility]. 12/08/2020 Right Diagnostic Mammogram, [facility]. 06/08/2021 Right Diagnostic Mammogram, [facility]. 12/09/2021 Bilateral Screening Mammogram, [facility]. Tissue Density: The breast tissue is heterogeneously dense. This may lower the sensitivity of mammography. Findings: Analyzed By CAD. There is no suspicious group of microcalcifications or new suspicious mass in either breast. Overall Assessment: Benign, BI-RAD 2 Management: Screening Mammogram of both breasts in 1 year. A clinical breast exam by your physician is recommended on an annual basis and results should be correlated with mammographic findings. Electronically signed and approved by: Jaspal Cornejo M.D. Radiologis
== END | disposition home or self-care (01) ==
LOC: RADMAMWWP 09:18
PROVIDERS: ATTEND Surgery
DX: Z12.31 Encounter for screening mammogram for malignant neoplasm of breast (principal); Z78.0 Asymptomatic menopausal state; Z98.890 Other specified postprocedural states
CPT/HCPCS: 77067

== ENCOUNTER → 2022-12-16 | Outpatient (CLI) | payer BC ==
[2022-12-16 12:00] VITALS: BP 149/94; PULSE 73; RESP 17; TEMP 97.9
--- NOTE | 2022-12-16 12:00 | P.PN ---
Subjective Progress Note Date: 12/16/22 Principal diagnosis: fibrocystic breast changes Fibrocystic breast changes Libertad is a 57-year-old white female with a known history of fibrocystic breast disease. She underwent a stereotactic core biopsy of the right breast on which was benign. In the past 2014 she has also had a stereotactic core biopsy of the left breast which was also benign. She had a bilateral mammogram performed on which was benign BIRADS 2. The patient is not complaining of any new lumps masses or nodules of concern in either breast. She is not complaining of any nipple discharge or skin changes. Leigh Risk 1.7%; we have discussed chemoprevention and she has declined. Caffeine: occasional chocolate: daily nicotine: stopped smoking 6years ago Family history: mother: colon cancer Hormonal History: menarche: 13 , breast fed:yes, age at first : 23 menopause: 54 BCP: 8 years hormones: none surgical history: Umbilical and ventral hernia repair Right breast cyst removed Tubal ligation Medical history: high cholesterol post COVID; had the vaccine and booster when she got COVID anemia takes an iron pill: Upper and lower endoscopy done which were negative Social History: smoke: stopped 5 years ago alcohol: none drugs: none - Constitutional Constitutional: Denies chills, Denies fever - EENT Eyes: denies blurred vision, denies pain Ears: deny: decreased hearing, tinnitus Ears, nose, mouth and throat: Denies headache, Denies sore throat - Breasts Breasts: bilateral: as per HPI - Cardiovascular Cardiovascular: Denies chest pain, Denies shortness of breath - Respiratory Comment: CPAP Respiratory: Denies cough - Gastrointestinal Gastrointestinal: Denies abdominal pain, Denies diarrhea, Denies nausea, Denies vomiting - Menstruation Menstruation: Reports postmenopausal - Musculoskeletal Comment: arthritis knees, feet Musculoskeletal: Denies myalgias - Integumentary Integumentary: Denies pruritus, Denies rash - Neurological Neurological: Denies numbness, Denies weakness - Psychiatric Psychiatric: Denies anxiety, Denies depression - Endocrine Comment: Patient is losing weight on medication, intentional Endocrine: Reports weight change, Denies fatigue - Hematologic/Lymphatic Comment: none - Allergic/Immunologic Allergic/Immunologic: Reports seasonal allergies Objective - Constitutional General appearance: Present: cooperative - EENT Eyes: Present: EOMI ENT: Present: hearing grossly normal - Neck Neck: Present: normal ROM - Respiratory Respiratory: bilateral: CTA - Cardiovascular Rhythm: regular Heart sounds: normal: S1, S2 - Gastrointestinal General gastrointestinal: Present: soft - Integumentary Integumentary: Present: normal turgor - Musculoskeletal Musculoskeletal: Present: gait normal - Psychiatric Psychiatric: Present: A&O x's 3, appropriate affect, intact judgment & insight - Additional findings Additional findings: Breast Exam: BRA: 42C inspection: Bilateral grade 3 ptosis Palpation: Right breast: Multi-positional exam fibrocystic changes no dominant masses or nodules of concern Right axilla: No adenopathy of concern Left breast: Multi-positional exam fibrocystic changes no dominant masses or nodules of concern Left axilla: No adenopathy of concern Assessment and Plan Assessment: Impression: Fibrocystic breast changes BMI 51.2 Bilateral mammogram 120 323 benign BIRADS 2 Plan: bilateral mammogram in 1 year with physician exam at that time Workup of anemia as per primary care physician Cc: Dr. Dillon
== END ==
LOC: WWCWWP 11:37
PROVIDERS: ATTEND Surgery
DX: Z12.31 Encounter for screening mammogram for malignant neoplasm of breast (principal); N60.21 Fibroadenosis of right breast; N60.22 Fibroadenosis of left breast; E78.00 Pure hypercholesterolemia, unspecified; Z86.16 Personal history of COVID-19; F17.200 Nicotine dependence, unspecified, uncomplicated

== ENCOUNTER → 2023-02-24 | Outpatient (CLI) | payer BC ==
[2023-02-24 20:18] LABS: Basophils # (A) 0.04 X 10*3/uL (0.00-0.10); Basophils % (A) 0.5 %; Eosinophils # (A) 0.14 X 10*3/uL (0.04-0.35); Eosinophils % (A) 1.8 %; HCT 41.3 % (37.2-46.3); HGB 13.3 g/dL (12.0-15.0); Immature Grans, Automated 0.3 %; Lymphocytes # (A) 1.62 X 10*3/uL (0.90-5.00); MCH 30.5 pg (27.0-32.0); MCHC 32.2 g/dL (32.0-37.0); MCV 94.7 fL (80.0-97.0); Mean Platelet Volume 10.5 fL (9.5-12.2); Monocytes # (A) 0.54 X 10*3/uL (0.20-1.00); NRBC Per 100 WBC 0 /100 WBCS (0.0-0.0); Neutrophils # (A) 5.34 X 10*3/uL (1.80-7.70); Neutrophils % (A) 69.4 %; Platelet Count 310 X 10*3/uL (140-440); RBC 4.36 X 10*6/uL (4.10-5.20); RDW 13.7 % (11.5-14.5)
[2023-02-24 20:27] LABS: African American GFR (CKD) 92.6 (60.0-200.0); Albumin 4.5 g/dL (3.8-4.9); Albumin/Globulin Ratio 1.62 (1.60-3.17); Anion Gap 15.4 mmol/L (10.00-18.00); BUN/Creat Ratio 12.87 Ratio (12.00-20.00); Blood Urea Nitrogen 10.5 mg/dL (9.0-27.0); Calcium 9.8 mg/dL (8.7-10.3); Carbon Dioxide 26.1 mmol/L (20.0-27.5); Globulin 2.7 g/dL (1.6-3.3); Non-African American GFR(CKD) 79.9 (60.0-200.0); Potassium 4.6 mmol/L (3.5-5.5); Total Bilirubin 1.1 mg/dL (0.30-1.20); Total Protein 7.2 g/dL (6.2-8.2)
== END | disposition home or self-care (01) ==
LOC: LABWHC1 12:23
PROVIDERS: ATTEND Family Medicine
DX: D64.9 Anemia, unspecified (principal)
CPT/HCPCS: 36415; 80053; 85025

== ENCOUNTER → 2023-05-16 | Outpatient (CLI) | payer BC ==
[2023-05-16 20:35] LABS: % Iron Saturation 25.86 (12.00-45.00); Ferritin 89.1 ng/mL (10.0-291.0)
[2023-05-16 22:11] LABS: Basophils # (A) 0.06 X 10*3/uL (0.00-0.10); Basophils % (A) 0.9 %; Eosinophils # (A) 0.14 X 10*3/uL (0.04-0.35); Eosinophils % (A) 2.2 %; HCT 43.8 % (37.2-46.3); HGB 14.2 d/dL (12.0-15.0); Lymphocytes # (A) 2.18 X 10*3/uL (0.90-5.00); Lymphocytes % (A) 33.6 %; MCH 31.2 pg (27.0-32.0); MCHC 32.4 d/dL (32.0-37.0); MCV 96.3 FL (80.0-97.0); Mean Platelet Volume 10.9 FL (9.5-12.2); Monocytes # (A) 0.41 X 10*3/uL (0.20-1.00); Monocytes % (A) 6.3 %; NRBC Per 100 WBC 0 X 10*3/uL (0.00-0.01); Neutrophils # (A) 3.68 X 10*3/uL (1.80-7.70); Neutrophils % (A) 56.8 %; Platelet Count 314 X 10*3/uL (140-440); RBC 4.55 X 10*6/uL (4.10-5.20); RDW 13.5 % (11.5-14.5); WBC 6.48 X 10*3/uL (4.50-10.00)
== END | disposition home or self-care (01) ==
LOC: LABWHC1 11:42
PROVIDERS: ATTEND Family Medicine
DX: D50.9 Iron deficiency anemia, unspecified (principal)
CPT/HCPCS: 36415; 82607; 82728; 82746; 83540; 83550; 85025

== ENCOUNTER → 2023-12-14 | Outpatient (CLI) | payer BC ==
--- NOTE | 2023-12-14 20:30 | MM ---
Reason for Exam: Screening (asymptomatic). Last screening mammogram was performed 12 month(s) ago. Patient History: Menarche at age 12. First Full-Term at age 23. Postmenopausal. Patient has history of breast feeding. 12/2010, Benign Excisional Biopsy on the right side. 12/17/2020, Benign Core Biopsy on the right side. 06/02/2015, Benign Core Biopsy on the left side. 08/16/2010, Benign Cyst Aspiration on the right side. 12/12/2005, Benign Core Biopsy on the left side. 12/12/2005, Benign Cyst Aspiration on the left side. Risk Values: Leigh 5 year model risk: 1.8%. NCI Lifetime model risk: 10.2%. Prior Study Comparison: 06/08/2021 Right Diagnostic Mammogram, [facility]. 12/09/2021 Bilateral Screening Mammogram, [facility]. 12/12/2022 Bilateral MG screening mammo w CAD, [facility]. Tissue Density: The breast tissue is heterogeneously dense. This may lower the sensitivity of mammography. Findings: Analyzed By CAD. One microclip on the right and 2 on the left from prior biopsies. Unchanged bilateral areas of asymmetric density and stable scattered punctate calcifications. There is no suspicious group of microcalcifications or new suspicious mass in either breast. Overall Assessment: Benign, BI-RAD 2 Management: Screening Mammogram of both breasts in 1 year. . Patient should continue monthly self-breast exams. A clinical breast exam by your physician is recommended on an annual basis. This exam should not preclude additional follow-up of suspicious palpable abnormalities. Note on Leigh scores and lifetime risk: 1. A Leigh score greater than 3% is considered moderate risk. If this is the case, consider specialist referral to assess eligibility for a risk reducing agent. 2. If overall lifetime risk for the development of breast cancer is 20% or higher, the patient may qualify for future screening with alternating mammogram and breast MRI. Electronically signed and approved by: Pierce Ohara M.D. Radiologist
== END | disposition home or self-care (01) ==
LOC: RADMAMWWP 09:42
PROVIDERS: ATTEND Surgery
DX: Z12.31 Encounter for screening mammogram for malignant neoplasm of breast (principal); Z78.0 Asymptomatic menopausal state
CPT/HCPCS: 77067

== ENCOUNTER → 2023-12-21 | Outpatient (CLI) | payer BC ==
[2023-12-21 11:53] VITALS: BP 129/96; PULSE 92; RESP 18; TEMP 97.8
--- NOTE | 2023-12-21 12:26 | P.PN ---
Subjective Progress Note Date: 12/21/23 Principal diagnosis: fibrocystic breast changes Fibrocystic breast changes Libertad is a 57-year-old white female with a known history of fibrocystic breast disease. She underwent a stereotactic core biopsy of the right breast on which was benign. In the past 2014 she has also had a stereotactic core biopsy of the left breast which was also benign. She had a bilateral mammogram performed on which was benign BIRADS 2. The patient is not complaining of any new lumps masses or nodules of concern in either breast. She is not complaining of any nipple discharge or skin changes. Patient was noted to be anemic last year and is now taking iron, this is as per Dr. Dillon. Patient has lost about 20 pounds. Leigh Risk 1.8%; lifetime risk: 10.2% Caffeine: occasional chocolate: daily nicotine: stopped smoking 6years ago Family history: mother: colon cancer Hormonal History: menarche: 13 , breast fed:yes, age at first : 23 menopause: 54 BCP: 8 years hormones: none surgical history: Umbilical and ventral hernia repair Right breast cyst removed Tubal ligation Medical history: high cholesterol post COVID; had the vaccine and booster when she got COVID anemia takes an iron pill: Upper and lower endoscopy done which were negative Social History: smoke: stopped 5 years ago alcohol: none drugs: none - Constitutional Constitutional: Denies chills, Denies fever - EENT Eyes: denies blurred vision, denies pain Ears: deny: decreased hearing, tinnitus Ears, nose, mouth and throat: Denies headache, Denies sore throat - Breasts Breasts: bilateral: as per HPI - Cardiovascular Cardiovascular: Denies chest pain, Denies shortness of breath - Respiratory Comment: CPAP Respiratory: Denies cough - Gastrointestinal Gastrointestinal: Denies abdominal pain, Denies diarrhea, Denies nausea, Denies vomiting - Menstruation Menstruation: Reports postmenopausal - Musculoskeletal Comment: arthritis knees, feet Musculoskeletal: Denies myalgias - Integumentary Integumentary: Denies pruritus, Denies rash - Neurological Neurological: Denies numbness, Denies weakness - Psychiatric Psychiatric: Denies anxiety, Denies depression - Endocrine Comment: Patient is losing weight on medication, intentional Endocrine: Reports weight change, Denies fatigue - Hematologic/Lymphatic Comment: none - Allergic/Immunologic Allergic/Immunologic: Reports seasonal allergies Objective - Vital Signs Vital signs: Vital Signs Temp 97.8 F 12/21/23 11:46 Pulse 92 12/21/23 11:46 Resp 18 12/21/23 11:46 BP 129/96 12/21/23 11:46 Pulse Ox 95 12/21/23 11:46 FiO2 Intake & Output 12/20/23 12/21/23 12/21/23 18:59 06:59 18:59 Weight 122.924 kg - Constitutional General appearance: Present: cooperative - EENT Eyes: Present: EOMI ENT: Present: hearing grossly normal - Neck Neck: Present: normal ROM - Respiratory Respiratory: bilateral: CTA - Cardiovascular Rhythm: regular Heart sounds: normal: S1, S2 - Integumentary Integumentary: Present: normal turgor - Musculoskeletal Musculoskeletal: Present: gait normal - Psychiatric Psychiatric: Present: A&O x's 3, appropriate affect, intact judgment & insight - Additional findings Additional findings: Breast Exam: BRA: 42C inspection: Bilateral grade 3 ptosis Palpation: Right breast: Multi-positional exam fibrocystic changes no dominant masses or nodules of concern Right axilla: No adenopathy of concern Left breast: Multi-positional exam fibrocystic changes no dominant masses or nodules of concern Left axilla: No adenopathy of concern Assessment and Plan Assessment: Impression: Fibrocystic breast changes BMI 49.6 Bilateral mammogram 12-14-23 benign BIRADS 2 Plan: bilateral mammogram in 1 year with physician exam at that time Workup of anemia as per primary care physician Cc: Dr. Dillon
== END ==
LOC: WWCWWP 11:36
PROVIDERS: ATTEND Surgery
DX: N60.11 Diffuse cystic mastopathy of right breast (principal); E78.00 Pure hypercholesterolemia, unspecified; Z87.891 Personal history of nicotine dependence; Z86.16 Personal history of COVID-19; Z98.51 Tubal ligation status

== ENCOUNTER → 2024-04-04 | Outpatient (CLI) | payer BC ==
--- NOTE | 2024-04-04 10:29 | CT ---
EXAMINATION TYPE: CT right knee - [facility] Protocol DATE OF EXAM: 04/04/2024 COMPARISON: None HISTORY: pre op CT DLP: [address] of the right lower extremity was performed. FINDINGS: Presurgical planning CT was performed of the right lower extremity. Advanced degenerative changes seen about the knee. IMPRESSION: ABOVE
== END | disposition home or self-care (01) ==
LOC: RADCTMAIN 09:23
PROVIDERS: ATTEND Orthopaedic Surgery
DX: Z01.818 Encounter for other preprocedural examination (principal); M17.11 Unilateral primary osteoarthritis, right knee

== ENCOUNTER → 2024-04-23 | Outpatient (CLI) | payer BC ==
[2024-04-23 10:13] LABS: Partial Thromboplastin Time 23.5 sec (22.0-30.0)
[2024-04-23 12:59] LABS: INR 0.9 (<1.2); Prothrombin Time 9.9 sec (10.0-12.5)
[2024-04-23 15:10] LABS: HCT 42.7 % (37.2-46.3); HGB 13.7 g/dL (12.0-15.0); MCH 30.9 pg (27.0-32.0); MCHC 32.1 g/dL (32.0-37.0); MCV 96.2 FL (80.0-97.0); Mean Platelet Volume 10.7 FL (9.5-12.2); NRBC Per 100 WBC 0 X 10*3/uL (0.00-0.01); Platelet Count 290 X 10*3/uL (140-440); RBC 4.44 X 10*6/uL (4.10-5.20); RDW 13.2 % (11.5-14.5); WBC 5.14 X 10*3/uL (4.50-10.00)
[2024-04-23 15:31] LABS: % Iron Saturation 17.51 (12.00-45.00); ALT 21 U/L (8-44); AST 21 U/L (13-35); Albumin 4.3 g/dL (3.8-4.9); Albumin/Globulin Ratio 1.79 Ratio (1.60-3.17); Alkaline Phosphatase 76 U/L (41-126); BUN/Creat Ratio 9.62 Ratio (12.00-20.00); Blood Urea Nitrogen 7.7 mg/dL (9.0-27.0); Calcium 9.8 mg/dL (8.7-10.3); Carbon Dioxide 24.5 mmol/L (21.6-31.8); Chloride 105 mmol/L (96-109); Globulin 2.4 g/dL (1.6-3.3); Glucose 85 mg/dL (70-110); Iron 73 UG/DL (50-170); Potassium 4.5 mmol/L (3.5-5.5); Sodium 142 mmol/L (135-145); Total Bilirubin 0.9 mg/dL (0.3-1.2); Total Iron Binding Capacity 417 UG/DL (228-460); Total Protein 6.7 g/dL (6.2-8.2)
== END | disposition home or self-care (01) ==
LOC: LABWHC1 09:16
PROVIDERS: ATTEND Orthopaedic Surgery
DX: Z01.812 Encounter for preprocedural laboratory examination (principal); M17.11 Unilateral primary osteoarthritis, right knee; E11.9 Type 2 diabetes mellitus without complications; D64.9 Anemia, unspecified; Z22.322 Carrier or suspected carrier of Methicillin resistant Staphylococcus aureus
CPT/HCPCS: 80053; 83036; 83540; 83550; 85027; 85610; 85730; 87070; 93005

== ENCOUNTER → 2024-05-02 | Outpatient (CLI) | payer BC ==
--- NOTE | 2024-05-07 03:40 | CT ---
EXAMINATION TYPE: CT right knee - [facility] Protocol DATE OF EXAM: 05/02/2024 2:35 PM COMPARISON: CT right knee [facility] 04/04/2024 CLINICAL INDICATION:Female, 58 years old with history of M17.11; PHH, osteoarthritis, pain TECHNIQUE: Noncontrast CT was obtained of the right lower extremity per [facility] protocol. Contrast used : mL of , Oral contrast used: None CT DLP: 1509 mGycm, Automated exposure control for dose reduction was used. FINDINGS: Presurgical planning CT was performed of the right lower extremity. Advanced degenerative changes see n about the knee. IMPRESSION: ABOVE
== END | disposition home or self-care (01) ==
LOC: RADCTMAIN 14:05
PROVIDERS: ATTEND Orthopaedic Surgery
DX: Z53.9 Procedure and treatment not carried out, unspecified reason (principal)

== ENCOUNTER 2024-05-03 05:45 | Day surgery (SDC) | payer BC ==
[2024-04-30 11:23] VITALS: BMI 49.4
[2024-05-03] MEDS ORDERED: LIDOCAINE 1% (10MG/ML) FOR IV START INTRADERMA PRN (05:49)
[2024-05-03] MEDS ORDERED: fentaNYL (PF) 50 MCG/ML 2 ML AMP IVP PRN (05:49)
[2024-05-03] MEDS ORDERED: HYDROmorphone 0.5 MG/0.5 ML SYRINGE IVP PRN ×3 (05:49→10:55)
[2024-05-03] MEDS ORDERED: MIDAZOLAM 2 MG/2 ML VIAL IV PRN (05:49)
[2024-05-03] MEDS ORDERED: TRANEXAMIC 1,000 MG/100ML-NACL 1,000 MG in SALINE 1 100ML.BAG IV PRN (06:00)
[2024-05-03] MEDS ORDERED: TRANEXAMIC 1,000 MG/100ML-NACL 1,000 MG in SALINE 1 100ML.BAG IVPB PRN (06:00)
[2024-05-03] MEDS ORDERED: ONDANSETRON 4 MG/2 ML VIAL IVP PRN (06:00)
[2024-05-03] MEDS: oxyCODONE ER 10 MG TAB.ER.12H PO PRN (06:45)
[2024-05-03] MEDS: ACETAMINOPHEN TAB 500 MG TAB PO PRN (06:45)
[2024-05-03] MEDS: DOCUSATE 100 MG CAP PO PRN (06:45)
[2024-05-03] MEDS: LACTATED RINGERS 1,000 ML IV SCH (06:47)
[2024-05-03] MEDS: ONDANSETRON 4 MG/2 ML VIAL IVP ONE (06:48)
[2024-05-03] MEDS: KETOROLAC 15 MG/ML 1 ML VIAL IVP PRN (06:48)
[2024-05-03] MEDS: DEXAMETHASONE SOD PHOSPHATE 10 MG/ML 1 ML VIAL IV PRN (06:49)
[2024-05-03] MEDS: FAMOTIDINE 20 MG/2 ML VIAL IVP PRN (06:49)
[2024-05-03] MEDS: MIDAZOLAM 2 MG/2 ML VIAL IVP ONE (07:06)
[2024-05-03] MEDS: IV FLUID CONTINUATION 1,000 ML IV ONE ×2 (07:07→10:40)
[2024-05-03] MEDS ORDERED: fentaNYL (PF) 50 MCG/ML 2 ML AMP ONE (07:40)
[2024-05-03] MEDS ORDERED: TRANEXAMIC 1,000 MG/100ML-NACL PREMIX BAG ONE (07:40)
[2024-05-03] MEDS ORDERED: ePHEDrine 50 MG/ML 1 ML VIAL ONE (07:40)
[2024-05-03] MEDS ORDERED: PROPOFOL 10 MG/ML 20 ML VIAL IV ONE (07:40)
[2024-05-03] MEDS ORDERED: WATER FOR INJECTION, STERILE 10 ML VIAL IV ONE (07:40)
[2024-05-03] MEDS ORDERED: KETAMINE HCL IN 0.9 % NACL 50 MG/5 ML SYRINGE ONE (07:40)
[2024-05-03] MEDS ORDERED: PHENYLEPHRINE-0.9% NACL SYG 1,000 MCG/10 ML SYRINGE ONE (07:40)
[2024-05-03] MEDS ORDERED: DEXAMETHASONE SOD PHOSPHATE 4 MG/ML 1 ML VIAL ONE (07:40)
[2024-05-03] MEDS ORDERED: MIDAZOLAM 2 MG/2 ML VIAL ONE (07:40)
[2024-05-03] MEDS ORDERED: GLYCOPYRROLATE 0.2 MG/ML 2 ML VIAL ONE (07:40)
[2024-05-03] MEDS ORDERED: diphenhydrAMINE 50 MG/ML 1 ML VIAL ONE (07:40)
[2024-05-03] MEDS ORDERED: HYDROmorphone (PF) 1 MG/ML ONE (07:40)
[2024-05-03] MEDS ORDERED: ROPIVACAINE 5 MG/ML 30 ML VIAL ONE (07:40)
[2024-05-03] MEDS: ceFAZolin 3 GM in SODIUM CHLORIDE 0.9% 100 ML IVPB PRN (07:43)
[2024-05-03] MEDS: ROPIVACAINE/EPI/CLONIDINE/KET 50 ML SYRINGE MISCELLANE PRN (08:59)
[2024-05-03] MEDS: LACTATED RINGERS 1,000 ML IV ONE (09:21)
[2024-05-03] MEDS ORDERED: NALOXONE 0.4 MG/ML 1 ML VIAL IV PRN (10:55)
[2024-05-03] MEDS ORDERED: NA PHOS,M-B/NA PHOS,DI-BA 133 ML ENEMA RECTAL PRN (10:55)
[2024-05-03] MEDS ORDERED: bisacodyL 10 MG SUPP RECTAL PRN (10:55)
[2024-05-03] MEDS ORDERED: MAGNESIUM HYDROXIDE 2,400 MG/30 ML CUP PO PRN (10:55)
--- NOTE | 2024-05-03 10:58 | P.OP ---
Date of Procedure: 05/03/24 Preoperative Diagnosis: 1. severe right knee osteoarthritis 2. BMI 49 Postoperative Diagnosis: same Procedure(s) Performed: 1. Right total knee arthroplasty 2. Computer assisted musculoskeletal navigation using CT/MRI images 3. Application of negative pressure incisional wound VAC, right knee, less than 50 cm, incision measuring 20 cm Modifier 22 for increased procedural complexity: Justification: This operation required significantly more time, work, and procedural complexity than a standard primary or revision total joint arthroplasty. Specifically the prior traumatic changes and or surgical procedure left a significantly altered surgical field with resultant scar tissue, adhesions, and altered anatomy that required a longer and more difficult and complex surgical dissection. This patient required: Extensile exposure requiring meticulous and extensive debridement due contractures Significantly prolonged operative time Increased BMI (49) and challenging body habitus All of the above result in a physically and mentally challenging operative procedure that in my professional opinion necessitates a 30% increase above standard the schedule Implants: 1. [place] [employer] CR Femur Size #2 2. [employer] [place] Tibial Base Size #2 3. [employer] CS poly Size #9 4. [place] [employer] all poly patella, Size #29 Anesthesia: KRISTYA, regional Surgeon: Crow Denis Route Sales Specialist #1: Dion Mcclure Estimated Blood Loss (ml): 50 IV fluids (ml): 800 Pathology: none sent Condition: stable Disposition: PACU Indications for Procedure: I met with the patient in the office previously to discuss treatment of her end- stage knee arthritis. She had failed a long course of nonsurgical treatment. I initially recommended weight loss to bring her BMI below 50. She was able to do this but still had an elevated BMI of 49. We discussed her elevated risk of having a complication particularly delayed wound healing, mechanical failure of her knee implant, and infection. She voiced her understanding of this but stated that due to the severity of her pain and limitations and physical function she wanted to proceed with a total knee replacement. She voiced her u nderstanding of the risks and complications and made a well-informed decision to proceed with an elective total knee replacement. I met with the patient preoperatively in the office setting and discussed treatment of their symptomatic knee arthritis. They failed a long course of nonsurgical treatment and elected to proceed with an elective total knee replacement. I discussed the potential risks and complications at length and gave them ample time to ask questions. Risks discussed included: risks from anesthesia, superficial site surgical infection, acute and/or chronic periprosthetic joint infection, delayed wound healing, drainage, wound necrosis, instability, stiffness, stiffness requiring manipulation and/or revision surgery, damage to local blood vessels or nerves, aseptic loosening of the implants, extensor mechanism issues including disruption, patellar maltracking, avascular necrosis etc., continued or worsened knee pain, generalized dissatisfaction with surgical outcome, need for revision surgery, an inability to regain preinjury level of function, DVT, PE, other medical complications, and possibly loss of life or limb. The patient voiced their understanding that while these are the most common complications other less common complications are possible. They provided both their verbal and written consent to go forward with surgery. Description of Procedure: The patient was identified in preoperative holding and the correct operative extremity was verified and marked with a marker. I reviewed the consent form with the patient at length. All of their questions were answered. The patient was given a block by anesthesia. They were then brought back to the operating room. They were transferred onto the operating room table where a general anesthetic, preoperative antibiotics, and tranexamic acid were administered by anesthesia. A tourniquet was applied to the proximal aspect of the operative extremity. The contralateral extremity was padded under the heel and secured to the operating room table with a nonsterile blue towel and tape. The ipsilateral arm was carefully draped across the patient's chest and secured with a pillow and foam. A post was applied over the lateral aspect of the ipsilateral thigh and a bolster was placed under the ipsilateral foot. I verified that the operative extremity was stable and the knee was flexed to 90. The operative extremity was then placed in a leg leal, nonsterile drapes were applied, and the extremity was prepped and draped sterilely in the standard sterile fashion. Prior to starting surgery timeout was performed identifying the correct patient, operative extremity, and procedure. The leg was then elevated, exsanguinated with an Esmarch bandage, and the tourniquet was inflated. An anterior midline incision was made sharply with a scalpel. Once I had dissected deep to the superficial fascial layer medial and lateral flaps were elevated. A medial parapatellar arthrotomy was created. Upon opening the knee joint there were diffuse arthritic changes in all 3 compartments. The anterior horn of the medial meniscus were sharply released and a medial release was performed around the posterior medial corner of the knee to facilitate retractor placement. The fat pad was excised with electrocautery. The patella was found to be severely arthritic and a provisional cut was made with a sagittal saw to facilitate mobilization of the extensor mechanism during the procedure. Remnants of the ACL and PCL were then excised from the notch. 4 mm pins were then placed within the incision in the medial distal femur and proximal tibia. Arrays were applied to the pins and I verified they were completely tightened. The knee was then registered with the [employer] robot and manipulations in implant position were made to balance the knee and opitmize implant position. Using the [employer] robotic saw all cuts were made in accordance with our plan. After all bony fragments had been removed the cuts were verified with the planar probe. The tibia was then subluxed forward and sized. The knee was brought into flexion and a lamina hog trader was placed to allow removal of the meniscal remnants both medially and laterally as well as posterior osteophytes. Local anesthetic was then infiltrated around the joint capsule. Trial implants were then placed within the knee. Range of motion and collateral ligament tension was then evaluated. Adjustments in implant size and position were then made accordingly. Once the knee was felt to be appropriately balanced the Genaro pins were removed. The patella was then recut, sized, and punched. A trial patellar button was then placed. With the trial components in place, the patella tracked midline. The femur was then drilled and the trial component removed. The trial tibial component was then appropriately rotated, pinned, and prepared for the keel. All trial components were then removed from the knee. The knee was thoroughly irrigated with pulsatile lavage. Cement was prepared via vacuum mixing in a bowl on the back table. I then hand pressurized cement into the femur and tibia and placed the implants beginning with the tibial base tray and poly liner, femoral component, and finally the patellar button. All extruded cement was removed including from the pin sites. Once the cement had hardened the knee was evaluated one final time with the final polyethylene liner in place. The knee had full extension and flexion and felt stable to varus and valgus stress throughout the arc of motion. The tourniquet was released and with the tourniquet down the patella tracked midline. All bleeders were controlled with electrocautery. The knee was then soaked for 3 minutes with a dilute Betadine soak. The knee was thoroughly irrigated using 3 L of sterile saline and pulsatile lavage. The extensor mechanism was then reapproximated using pop off Vicryl sutures followed by a running barbed suture. The knee was then closed in layers with a 0 strata fix for the deep fascial layer, 2-0 strata fix for the superficial subcutaneous layer and Monocryl and Steri-Strips for the skin. A sterile dressing was applied. I verified that all instrument, sponge, and sharp counts were correct. The patient was then transferred off the operating room table, extubated, and brought to recovery having tolerated the procedure well. Dion Mcclure PA-C was required as a skilled export sales assistant due to the complexity of surgery for patient positioning, draping, exposure, retraction, closure of wound and application of dressing. PLAN: The patient can weight-bear as tolerated on the operative extremity. DVT prophylaxis with aspirin 81 mg twice a day based on preoperative risk stratification. Internal medicine for perioperative medical management. 2 doses of post-operative antibiotics followed by doxycycyline 100 mg bid until her incision heals. Physical therapy for gait training. Follow-up in the office in 2 weeks for wound check and x-rays of the knee including an AP and lateral.
--- NOTE | 2024-05-03 11:56 | XR ---
EXAMINATION TYPE: XR knee limited RT DATE OF EXAM: 05/03/2024 CLINICAL HISTORY: Right knee pain and arthritis status post total knee replacement. TECHNIQUE: Portable AP and crosstable lateral views of the right knee are obtained immediately posto peratively. COMPARISON: None FINDINGS: Metallic hardware from total right knee arthroplasty is seen and appears satisfactory in a lignment and position. There is evidence of recent surgery with diffuse subcutaneous gas , vertical skin donny, and percutaneous suprapatellar surgical drain noted. IMPRESSION: METALLIC HARDWARE FROM TOTAL right KNEE ARTHROPLASTY IS SATISFACTORY IN ALIGNMENT.
[2024-05-03] MEDS: SODIUM CHLORIDE 0.9% 1,000 ML IV SCH (14:41)
[2024-05-03] MEDS: HYDROcodone/APAP 5-325MG 1 EACH TAB PO PRN (15:03)
[2024-05-03] MEDS: ceFAZolin 3 GM in SODIUM CHLORIDE 0.9% 100 ML IVPB SCH (15:05)
[2024-05-03] MEDS: HYDROmorphone 1 MG/ML 1 ML SYRINGE IVP PRN (16:25)
[2024-05-03] MEDS: DEXAMETHASONE SOD PHOSPHATE 4 MG/ML 1 ML VIAL IV ONE (18:11)
[2024-05-03] MEDS: ATORVASTATIN 20 MG TAB PO SCH (21:26)
[2024-05-03] MEDS: ASPIRIN 81 MG PO SCH (21:26)
[2024-05-03] MEDS: SENNOSIDES-DOCUSATE SODIUM 1 EACH TAB PO SCH (21:26)
[2024-05-04] MEDS: HYDROcodone/APAP 10-325MG 1 EACH TAB PO PRN (01:12)
--- NOTE | 2024-05-04 07:42 | P.PN ---
Subjective Patient is doing relatively well this morning. She's had some pain overnight but discomfortable now. She denies chest pain or shortness of breath. Objective - Vital Signs Vital signs: Vital Signs Temp 98.2 F 05/04/24 01:26 Pulse 60 05/04/24 01:26 Resp 15 05/04/24 01:26 BP 109/61 05/04/24 01:26 Pulse Ox 96 05/04/24 01:26 FiO2 Intake & Output 05/03/24 05/04/24 05/04/24 18:59 06:59 18:59 Intake Total 2400 3 Balance 2400 3 Weight 124.5 kg Intake: IV 2400 Other 3 Other: Voiding Method Toilet Toilet # Voids 1 - Exam Patient is sitting up at bedside in a chair. She is alert and able to answer questions. Her incisional wound VAC is intact with good seal. There is moderate swelling throughout the leg. She is able to actively plantarflex and dorsiflex her ankle and her toes. Assessment and Plan Assessment: Postoperative day #1 status post right total knee replacement, doing well Plan: 1. Weightbearing as tolerated on the operative extremity. Up with assistance. 2. DVT prophylaxis with aspirin 81 mg twice a day 3. Physical therapy for gait training and mobilization 4. Internal medicine for perioperative medical management 5. PT for gait training 6. Disposition: The patient does well with physical therapy and is comfortable she can discharge today. If she needs another night we'll plan on keeping her until tomorrow.
[2024-05-04] MEDS: CYANOCOBALAMIN 500 MCG TAB PO SCH (08:10)
[2024-05-04 10:32] LABS: HCT 29.3 % (37.2-46.3); HGB 9.5 g/dL (12.0-15.0); MCH 30.7 pg (27.0-32.0); MCHC 32.4 g/dL (32.0-37.0); MCV 94.8 FL (80.0-97.0); Mean Platelet Volume 10.5 FL (9.5-12.2); NRBC Per 100 WBC 0 X 10*3/uL (0.00-0.01); Platelet Count 266 X 10*3/uL (140-440); RBC 3.09 X 10*6/uL (4.10-5.20); RDW 13.6 % (11.5-14.5); WBC 14.34 X 10*3/uL (4.50-10.00)
[2024-05-04 10:33] LABS: Basophils # (A) 0.02 X 10*3/uL (0.00-0.10); Basophils % (A) 0.1 %; Eosinophils # (A) 0 X 10*3/uL (0.04-0.35); Eosinophils % (A) 0 %; Lymphocytes # (A) 1.15 X 10*3/uL (0.90-5.00); Monocytes # (A) 0.88 X 10*3/uL (0.20-1.00); Monocytes % (A) 6.1 %; Neutrophils # (A) 12.23 X 10*3/uL (1.80-7.70); Neutrophils % (A) 85.4 %
[2024-05-04 10:39] LABS: BUN/Creat Ratio 15.29 Ratio (12.00-20.00); Blood Urea Nitrogen 10.7 mg/dL (9.0-27.0); Calcium 8.9 mg/dL (8.7-10.3); Carbon Dioxide 22.4 mmol/L (21.6-31.8); Chloride 103 mmol/L (96-109); Glucose 136 mg/dL (70-110); Potassium 4.8 mmol/L (3.5-5.5); Sodium 138 mmol/L (135-145)
--- NOTE | 2024-05-04 13:20 | P.CONS ---
History of Present Illness - Reason for Consult Consult date: 05/04/24 Medical management - History of Present Illness History of present illness; patient is a 58-year-old lady with past medical history significant for arthritis, obesity, who presented to the hospital for elective right total knee arthroplasty. Patient was having right knee pain for the last few months and was following up outpatient with orthopedic surgery. Patient has been constant right knee pain that is worsened with standing and walking upstairs. Patient has tried all conservative measures and therapy but patient's pain persists. Orthopedic surgery discussed with patient and patient was scheduled for right total knee arthroplasty on 05/03. Postoperatively internal medicine team were consulted for medical management REVIEW OF SYSTEMS: CONSTITUTIONAL: No fever, no malaise, no fatigue. HEENT: No recent visual problems or hearing problems. Denied any sore throat. CARDIOVASCULAR: No chest pain, orthopnea, PND, no palpitations, no syncope. PULMONARY: No shortness of breath, no cough, no hemoptysis. GASTROINTESTINAL: No diarrhea, no nausea, no vomiting, no abdominal pain. NEUROLOGICAL: No headaches, no weakness, no numbness. HEMATOLOGICAL: Denies any bleeding or petechiae. GENITOURINARY: Denies any burning micturition, frequency, or urgency. MUSCULOSKELETAL/RHEUMATOLOGICAL: Right knee pain ENDOCRINE: Denies any polyuria or polydipsia. The rest of the 14-point review of systems is negative. PHYSICAL EXAMINATION: GENERAL: The patient is alert and oriented x3, not in any acute distress. Well developed, well nourished. HEENT: Pupils are round and equally reacting to light. EOMI. No scleral icterus. No conjunctival pallor. Normocephalic, atraumatic. No pharyngeal erythema. No thyromegaly. CARDIOVASCULAR: S1 and S2 present. No murmurs, rubs, or gallops. PULMONARY: Chest is clear to auscultation, no wheezing or crackles. ABDOMEN: Soft, nontender, nondistended, normoactive bowel sounds. No palpable organomegaly. MUSCULOSKELETAL: Right knee surgical incision seen EXTREMITIES: No cyanosis, clubbing, or pedal edema. NEUROLOGICAL: Gross neurological examination did not reveal any focal deficits. SKIN: No rashes. Assessment and plan Right knee osteoarthritis s/p right total knee arthroplasty Obesity Hyperlipidemia Diabetes mellitus Monitor vital sign Encourage use of I-S Continue pain management per orthopedics Continue DVT prophylaxis per orthopedics Resume home meds PT and OT consulted Labs and medication were reviewed.. Continue same treatment. Continue with sym ptomatic treatment. Resume home medication. Monitor labs and vitals. DVT and GI prophylaxis. Further recommendations as per clinical course of the patient Dictation was produced using [employer] dictation software. please excuse any grammatical, word or spelling errors. Past Medical History Past Medical History: Hyperlipidemia Additional Past Medical History / Comment(s): seasonal allergies; past hx. colon polyps; mom had colon cancer, intermittent abd. pain; History of Any Multi-Drug Resistant Organisms: None Reported Past Surgical History: Breast Surgery, Hernia Repair, Tubal Ligation Additional Past Surgical History / Comment(s): cyst removed left wrist; colonoscopy; hernia repair; benign LT breast bx x2 11/2005 & 05/2015; benign RT breast bx 12/2010; cyst removed right breast Past Anesthesia/Blood Transfusion Reactions: No Reported Reaction Additional Past Anesthesia/Blood Transfusion Reaction / Comm: woke up during a surgery Past Psychological History: No Psychological Hx Reported Smoking Status: Former smoker Past Alcohol Use History: None Reported Additional Past Alcohol Use History / Comment(s): Started smoking at age 15 and quit at age 50 Past Drug Use History: None Reported - Past Family History Mother Family Medical History: Cancer Additional Family Medical History / Comment(s): Colon cancer Medications and Allergies Home Medications Medication Instructions Recorded Confirmed Type Atorvastatin [Lipitor] 20 mg PO HS 09/21/15 05/03/24 History Cholecalciferol (Vitamin D3) 125 mcg PO QAM 12/11/20 05/03/24 History [Vitamin D3 (5000 Iu)] Semaglutide [Wegovy] 2.4 mg SQ WEEKLY 12/21/23 05/03/24 History Cyanocobalamin (Vitamin B-12) 1,000 mcg PO DAILY 04/30/24 05/03/24 History [Vitamin B-12] Diclofenac Sodium Gel [Voltaren 1% 2 gm TOPICAL DAILY 04/30/24 05/03/24 History Gel] Ferrous Sulfate [Feosol] 325 mg PO DAILY 04/30/24 05/03/24 History Methyl Salicylate/Menth/Camph 1 applic TOPICAL DAILY 04/30/24 05/03/24 History [Bengay Ultra Strength Cream] Aspirin 81 mg PO BID #60 tab 05/03/24 Rx Diclofenac Sodium [Voltaren] 75 mg PO BID #60 tab 05/03/24 Rx Doxycycline Monohydrate 100 mg PO BID 14 Days #28 cap 05/03/24 Rx HYDROcodone/APAP 5-325MG [[place] 5] 1 each PO Q6HR PRN #32 tab 05/03/24 Rx Omeprazole 20 mg PO DAILY #30 tab 05/03/24 Rx Ondansetron [Zofran] 4 mg PO Q6HR PRN #30 tab 05/03/24 Rx Sennosides-Docusate Sodium 1 tab PO BID PRN #60 tablet 05/03/24 Rx [Senokot-S] Allergies Allergy/AdvReac Type Severity Reaction Status Date / Time No Known Allergies Allergy Verified 05/03/24 06:19 Physical Exam Vitals: Vital Signs Temp Pulse Resp BP BP Pulse Ox 05/04/24 07:07 98.1 F 70 18 109/65 97 05/04/24 01:26 98.2 F 60 15 109/61 96 05/03/24 19:07 98.2 F 67 15 105/64 95 05/03/24 14:53 97.4 F L 58 L 19 92/63 99 05/03/24 14:15 66 105/79 94 L 05/03/24 14:00 68 95/65 98 05/03/24 13:45 71 107/70 94 L 05/03/24 13:30 69 109/60 92 L 05/03/24 13:15 77 101/72 99 05/03/24 13:00 68 97/64 97 05/03/24 12:45 72 105/69 93 L 05/03/24 12:30 71 99/60 97 05/03/24 12:15 97.5 F L 67 18 105/71 95 05/03/24 12:08 68 17 05/03/24 11:37 68 17 100/63 95 Intake and Output 05/03/24 05/04/24 05/04/24 22:59 06:59 14:59 Intake Total 3 Balance 3 Intake: Other 3 Other: Voiding Method Toilet # Voids 1 1 Results CBC & Chem 7: 05/04/24 06:09 05/04/24 06:09 Labs: Abnormal Lab Results - Last 24 Hours (Table) 06/15/24 06/15/24 Range/Units 06:09 06:09 WBC 14.34 H (4.50-10.00) X 10*3/uL RBC 3.09 L (4.10-5.20) X 10*6/uL Hgb 9.5 L (12.0-15.0) g/dL Hct 29.3 L (37.2-46.3) % Immature Gran # 0.06 H (0.00-0.04) X 10*3/uL Neutrophils # 12.23 H (1.80-7.70) X 10*3/uL Eosinophils # 0 L (0.04-0.35) X 10*3/uL Anion Gap 12.60 H (4.00-12.00) mmol/L Glucose 136 H (70-110) mg/dL
[2024-05-04] MEDS: hydrOXYzine pamoate 25 MG CAP PO PRN (20:32)
--- NOTE | 2024-05-05 09:07 | P.PN ---
Subjective Patient is complaining of pain in her right knee. She says it is improved with oral pain medications but is still moderate to severe in nature. She was up with therapy yesterday. Per nursing the patient is having issues with anxiety. Objective - Vital Signs Vital signs: Vital Signs Temp 98.6 F 05/05/24 07:17 Pulse 70 05/05/24 07:17 Resp 17 05/05/24 07:17 BP 94/63 05/05/24 07:17 Pulse Ox 96 05/05/24 07:17 FiO2 Intake & Output 05/04/24 05/05/24 05/05/24 18:59 06:59 18:59 Other: Voiding Method Toilet # Voids 2 6 - Exam Patient is sitting up in a chair. She is alert and able to answer questions. Incisional wound VAC over her right knee is intact with good seal. She has mild swelling throughout the leg. Femoral and sciatic nerve function is intact. - Labs CBC & Chem 7: 05/04/24 06:09 05/04/24 06:09 Labs: Abnormal Lab Results - Last 24 Hours (Table) 05/04/24 05/04/24 Range/Units 06:09 06:09 WBC 14.34 H (4.50-10.00) X 10*3/uL RBC 3.09 L (4.10-5.20) X 10*6/uL Hgb 9.5 L (12.0-15.0) g/dL Hct 29.3 L (37.2-46.3) % Immature Gran # 0.06 H (0.00-0.04) X 10*3/uL Neutrophils # 12.23 H (1.80-7.70) X 10*3/uL Eosinophils # 0 L (0.04-0.35) X 10*3/uL Anion Gap 12.60 H (4.00-12.00) mmol/L Glucose 136 H (70-110) mg/dL Assessment and Plan Assessment: Postoperative day 2 status post right total knee replacement Plan: Continue treatment as outlined yesterday. I changed oral pain medication from [place] to Percocet. We'll plan on seeing the patient does today off IV pain medications. If she does well and is comfortable she can discharge home. If she needs an additional night in the hospital we will plan on discharging her tomorrow following a second session with therapy.
[2024-05-05 09:31] VITALS: RESP 18
[2024-05-05] MEDS: oxyCODONE-APAP 5-325MG 1 EACH TAB PO PRN (09:49)
--- NOTE | 2024-05-05 11:59 | P.DS ---
Providers Date of admission: 05/03/2024 Attending physician: Crow Denis Consults: 05/03/24 10:55 Consult Physician Stat Consulting Provider: Janine Iyer Consult Reason/Comments: Medical management Do you want consulting provider notified?: Yes Primary care physician: Román Carlisleqvi [facility] Course: patient is very present 50-year-old female who was admitted under my care and underwent a right total knee replacement on Monday. Following surgery she received 2 doses of postoperative antibiotics. She worked with physical therapy. Internal medicine managed her medical issues. She ultimately did well after being transitioned from IV to oral pain medications and was cleared for discharge home on postoperative day #2. Plan - Discharge Summary Discharge Rx Participant: Yes New Discharge Prescriptions: New Aspirin 81 mg PO BID #60 tab Doxycycline Monohydrate 100 mg PO BID 14 Days #28 cap Omeprazole 20 mg PO DAILY #30 tab Sennosides-Docusate Sodium [Senokot-S] 1 tab PO BID PRN #60 tablet PRN Reason: Constipation Diclofenac Sodium [Voltaren] 75 mg PO BID #60 tab Ondansetron [Zofran] 4 mg PO Q6HR PRN #30 tab PRN Reason: Nausea oxyCODONE HCL/ACETAMINOPHEN [Percocet 5-325 mg] 1 - 2 tab PO Q6HR PRN 7 Days #32 tab PRN Reason: Pain No Action Atorvastatin [Lipitor] 20 mg PO HS Cholecalciferol (Vitamin D3) [Vitamin D3 (5000 Iu)] 125 mcg PO QAM Semaglutide [Wegovy] 2.4 mg SQ WEEKLY Ferrous Sulfate [Feosol] 325 mg PO DAILY Diclofenac Sodium Gel [Voltaren 1% Gel] 2 gm TOPICAL DAILY Methyl Salicylate/Menth/Camph [Bengay Ultra Strength Cream] 1 applic TOPICAL DAILY Cyanocobalamin (Vitamin B-12) [Vitamin B-12] 1,000 mcg PO DAILY Discharge Medication List Atorvastatin [Lipitor] 20 mg PO HS 09/21/15 [History] Cholecalciferol (Vitamin D3) [Vitamin D3 (5000 Iu)] 125 mcg PO QAM 12/11/20 [History] Semaglutide [Wegovy] 2.4 mg SQ WEEKLY 12/21/23 [History] Cyanocobalamin (Vitamin B-12) [Vitamin B-12] 1,000 mcg PO DAILY 04/30/24 [History] Diclofenac Sodium Gel [Voltaren 1% Gel] 2 gm TOPICAL DAILY 04/30/24 [History] Ferrous Sulfate [Feosol] 325 mg PO DAILY 04/30/24 [History] Methyl Salicylate/Menth/Camph [Bengay Ultra Strength Cream] 1 applic TOPICAL DAILY 04/30/24 [History] Aspirin 81 mg PO BID #60 tab 05/03/24 [Rx] Diclofenac Sodium [Voltaren] 75 mg PO BID #60 tab 05/03/24 [Rx] Doxycycline Monohydrate 100 mg PO BID 14 Days #28 cap 05/03/24 [Rx] Omeprazole 20 mg PO DAILY #30 tab 05/03/24 [Rx] Ondansetron [Zofran] 4 mg PO Q6HR PRN #30 tab 05/03/24 [Rx] Sennosides-Docusate Sodium [Senokot-S] 1 tab PO BID PRN #60 tablet 05/03/24 [Rx] oxyCODONE HCL/ACETAMINOPHEN [Percocet 5-325 mg] 1 - 2 tab PO Q6HR PRN 7 Days #32 tab 05/05/24 [Rx] Follow up Appointment(s)/Referral(s): Crow Denis MD [Medical Doctor] - 2 Weeks Activity/Diet/Wound Care/Special Instructions: 1. Weight-bear as tolerated on your operative extremity unless instructed otherwise. Use a walker or other assistive device to ambulate. 2. Leave surgical dressing in place. If your dressing becomes saturated with blood, there is drainage, or the dressing becomes loose please contact the office. 3. It is okay to shower with your surgical dressing, but do not submerge in water (no hot tubs, bath's, swimming etc.) 4. Make sure to take her blood clot prevention medication as prescribed (aspirin, Eliquis, Xarelto, and Plavix are commonly prescribed medications for blood clot prevention) 5. While taking [place] or Percocet for pain make sure you're taking a stool softener (Colace) and drink lots of water. 6. Keep all follow-up appointments as scheduled. You will usually be seen in 1-2 weeks following surgery. 7. Please contact the office with any questions or concerns [phone] Discharge Disposition: HOME WITH HOME HEALTH SERVICES
--- NOTE | 2024-05-05 12:47 | P.PN ---
Subjective Progress Note Date: 05/05/24 patient is a 58-year-old lady with past medical history significant for arthritis, obesity, who presented to the hospital for elective right total knee arthroplasty. Patient was having right knee pain for the last few months and was following up outpatient with orthopedic surgery. Patient has been constant right knee pain that is worsened with standing and walking upstairs. Patient has tried all conservative measures and therapy but patient's pain persists. Orthopedic surgery discussed with patient and patient was scheduled for right total knee arthroplasty on 05/03. Postoperatively internal medicine team were consulted for medical management 05/05. Patient seen and examined. Patient is doing much better, patient medically stable for discharge REVIEW OF SYSTEMS: CONSTITUTIONAL: No fever, no malaise,. CARDIOVASCULAR: No chest pain, no palpitations, no syncope. PULMONARY: No shortness of breath, no cough, GASTROINTESTINAL: No diarrhea, no nausea, no vomiting, no abdominal pain. NEUROLOGICAL: No headaches, no weakness, PHYSICAL EXAMINATION: GENERAL: The patient is alert and oriented x3, not in any acute distress. Well developed, well nourished. HEENT: Pupils are round and equally reacting to light. EOMI. No scleral icterus. No conjunctival pallor. Normocephalic, atraumatic. No pharyngeal erythema. No thyromegaly. CARDIOVASCULAR: S1 and S2 present. No murmurs, rubs, or gallops. PULMONARY: Chest is clear to auscultation, no wheezing or crackles. ABDOMEN: Soft, nontender, nondistended, normoactive bowel sounds. No palpable organomegaly. MUSCULOSKELETAL: Right knee surgical incision seen EXTREMITIES: No cyanosis, clubbing, or pedal edema. NEUROLOGICAL: Gross neurological examination did not reveal any focal deficits. SKIN: No rashes. Assessment and plan Right knee osteoarthritis s/p right total knee arthroplasty Obesity Hyperlipidemia Diabetes mellitus Monitor vital sign Encourage use of I-S Continue pain management per orthopedics Continue DVT prophylaxis per orthopedics Resume home meds PT and OT following Orthopedic following Labs and medication were reviewed.. Continue same treatment. Continue with symptomatic treatment. Resume home medication. Monitor labs and vitals. DVT and GI prophylaxis. Further recommendations as per clinical course of the patient Dictation was produced using [employer] dictation software. please excuse any gramm atical, word or spelling errors. Objective - Vital Signs Vital signs: Vital Signs Temp 98.6 F 05/05/24 07:17 Pulse 70 05/05/24 07:17 Resp 18 05/05/24 07:57 BP 94/63 05/05/24 07:17 Pulse Ox 96 05/05/24 07:17 FiO2 Intake & Output 05/04/24 05/05/24 05/05/24 18:59 06:59 18:59 Other: Voiding Method Toilet # Voids 2 6 - Labs CBC & Chem 7: 05/04/24 06:09 05/04/24 06:09
[2024-05-05 14:01] VITALS: BP 97/63; PULSE 78; TEMP 98.3
[2024-05-10] MEDS ORDERED: NON FORMULARY DRUG (Semaglutide [Wegovy] 2.4 MG/0.75 ML Each) SQ SCH (09:00)
== END 2024-05-05 14:23 | disposition home health service (06) ==
LOC: OR 05:45 → 4SSUR 10:40 → OR 05-05 14:23
PROVIDERS: ATTEND Orthopaedic Surgery
DX: M17.11 Unilateral primary osteoarthritis, right knee (principal); G89.18 Other acute postprocedural pain; M24.561 Contracture, right knee; E66.9 Obesity, unspecified; Z68.42 Body mass index [BMI] 45.0-49.9, adult; Z79.82 Long term (current) use of aspirin; Z79.899 Other long term (current) drug therapy; Z79.85 Long-term (current) use of injectable non-insulin antidiabetic drugs; Z79.1 Long term (current) use of non-steroidal anti-inflammatories (NSAID); Z87.891 Personal history of nicotine dependence
CPT/HCPCS: 0055T; 27447; 64447; 64999; 80048; 85025

== ENCOUNTER → 2024-12-16 | Outpatient (CLI) | payer BC ==
--- NOTE | 2024-12-16 08:04 | MM ---
Reason for Exam: Screening (asymptomatic). Last screening mammogram was performed 12 month(s) ago. Patient History: Menarche at age 12. First Full-Term at age 23. Postmenopausal. Patient has history of breast feeding. 12/2010, Benign Excisional Biopsy on the right side. 12/17/2020, Benign Core Biopsy on the right side. 06/02/2015, Benign Core Biopsy on the left side. 08/16/2010, Benign Cyst Aspiration on the right side. 12/12/2005, Benign Core Biopsy on the left side. 12/12/2005, Benign Cyst Aspiration on the left side. Risk Values: Leigh 5 year model risk: 1.9%. NCI Lifetime model risk: 10.0%. Prior Study Comparison: 12/09/2021 Bilateral Screening Mammogram, [facility]. 12/12/2022 Bilateral MG screening mammo w CAD, [facility]. 12/14/2023 Bilateral MG screening mammo w CAD, [facility]. Tissue Density: The breasts are heterogeneously dense, which may obscure small masses. Findings: Analyzed By CAD. Bilateral breast biopsy clips. Right breast: There is no suspicious group of microcalcifications or new suspicious mass. Benign-appearing calcifications right breast. Left breast: There is no suspicious group of microcalcifications or new suspicious mass. Benign-appearing calcifications left breast. Overall Assessment: Benign, BI-RAD 2 Management: Screening Mammogram of both breasts in [address] [facility] will attempt to contact patient to return for supplemental views and ultrasound if indicated. Patient should continue monthly self-breast exams. A clinical breast exam by your physician is recommended on an annual basis. This exam should not preclude additional follow-up of suspicious palpable abnormalities. Note on Leigh scores and lifetime risk: 1. A Leigh score greater than 3% is considered moderate risk. If this is the case, consider specialist referral to assess eligibility for a risk reducing agent. 2. If overall lifetime risk for the development of breast cancer is 20% or higher, the patient may qualify for future screening with alternating mammogram and breast MRI. [facility], , 12/16/2024 7:48 AM. Electronically signed and approved by: Earnest Middleton DO
== END | disposition home or self-care (01) ==
LOC: RADMAMWWP 07:22
PROVIDERS: ATTEND Surgery
DX: Z12.31 Encounter for screening mammogram for malignant neoplasm of breast (principal); R92.333 Mammographic heterogeneous density, bilateral breasts; Z78.0 Asymptomatic menopausal state
CPT/HCPCS: 77067

== ENCOUNTER → 2024-12-20 | Outpatient (CLI) | payer BC ==
[2024-12-20 09:05] VITALS: BP 139/89; PULSE 82; RESP 16; TEMP 98.5
--- NOTE | 2024-12-20 09:31 | P.PN ---
Subjective Progress Note Date: 12/20/24 Principal diagnosis: fibrocystic breast disease 12-20-24 Principal diagnosis: fibrocystic breast changes Libertad is a 59-year-old white female with a known history of fibrocystic breast disease. She underwent a stereotactic core biopsy of the right breast on which was benign. In the past 2014 she has also had a stereotactic core biopsy of the left breast which was also benign. She had a bilateral mammogram performed on which was benign BIRADS 2. This was personally interpreted. The patient is not complaining of any new lumps masses or nodules of concern in either breast. She is not complaining of any nipple discharge or skin changes. Patient was noted to be anemic last year and is now taking iron, this is as per Dr. Dillon. Leigh Risk 1.9%; lifetime risk: 10.0% Caffeine: occasional chocolate: daily nicotine: stopped smoking 6years ago Family history: mother: colon cancer Hormonal History: menarche: 13 , breast fed:yes, age at first : 23 menopause: 54 BCP: 8 years hormones: none surgical history: Umbilical and ventral hernia repair Right breast cyst removed Tubal ligation right knee replacement Medical history: high cholesterol post COVID; had the vaccine and booster when she got COVID anemia takes an iron pill: Upper and lower endoscopy done which were negative Social History: smoke: stopped 5 years ago alcohol: none drugs: none - Constitutional Constitutional: Denies chills, Denies fever - EENT Eyes: denies blurred vision, denies pain Ears: deny: decreased hearing, tinnitus Ears, nose, mouth and throat: Denies headache, Denies sore throat - Breasts Breasts: bilateral: as per HPI - Cardiovascular Cardiovascular: Denies chest pain, Denies shortness of breath - Respiratory Comment: CPAP Respiratory: Denies cough - Gastrointestinal Gastrointestinal: Denies abdominal pain, Denies diarrhea, Denies nausea, Denies vomiting - Menstruation Menstruation: Reports postmenopausal - Musculoskeletal Comment: arthritis knees, feet Musculoskeletal: Denies myalgias - Integumentary Integumentary: Denies pruritus, Denies rash - Neurological Neurological: Denies numbness, Denies weakness - Psychiatric Psychiatric: Denies anxiety, Denies depression - Endocrine Comment: Patient is losing weight on medication, intentional Endocrine: Reports weight change, Denies fatigue - Hematologic/Lymphatic Comment: none - Allergic/Immunologic Allergic/Immunologic: Reports seasonal allergies Objective - Vital Signs Vital signs: Vital Signs Temp 98.5 F 12/20/24 09:03 Pulse 82 12/20/24 09:03 Resp 16 12/20/24 09:03 BP 139/89 12/20/24 09:03 Pulse Ox 95 12/20/24 09:03 FiO2 Intake & Output 12/19/24 12/20/24 12/20/24 18:59 06:59 18:59 Weight 124.738 kg - Constitutional General appearance: Present: cooperative - EENT Eyes: Present: EOMI ENT: Present: hearing grossly normal - Neck Neck: Present: normal ROM - Respiratory Respiratory: bilateral: CTA - Cardiovascular Rhythm: regular Heart sounds: normal: S1, S2 - Integumentary Integumentary: Present: normal turgor - Musculoskeletal Musculoskeletal: Present: gait normal - Psychiatric Psychiatric: Present: A&O x's 3, appropriate affect, intact judgment & insight - Additional findings Additional findings: Breast Exam: BRA: 42C inspection: Bilateral grade 3 ptosis Palpation: Right breast: Multi-positional exam fibrocystic changes no dominant masses or nodules of concern Right axilla: No adenopathy of concern Left breast: Multi-positional exam fibrocystic changes no dominant masses or nodules of concern Left axilla: No adenopathy of concern Assessment and Plan Assessment: Impression: Fibrocystic breast changes BMI 50.3 Bilateral mammogram 12-16-24 benign BIRADS 2, personally interpreted Plan: bilateral mammogram in 1 year, 2025 with physician exam at that time follow up sooner if any concerns Cc: Dr. Dillon
== END ==
LOC: WWCWWP 08:57
PROVIDERS: ATTEND Surgery
DX: N60.12 Diffuse cystic mastopathy of left breast (principal); N60.11 Diffuse cystic mastopathy of right breast; Z12.31 Encounter for screening mammogram for malignant neoplasm of breast; F17.210 Nicotine dependence, cigarettes, uncomplicated; Z68.43 Body mass index [BMI] 50.0-59.9, adult